=== PATIENT | female | born 1965 | race Asian ===

== ENCOUNTER 2020-04-19 08:29 | Outpatient (REF) | payer OTHER, SELFPAY ==
--- NOTE | 2020-04-19 08:35 | MM_ITS ---
EXAMINATION: MM SCREENING DIGITAL BREAST TOMOSYNTHESIS, BILATERAL CLINICAL INFORMATION: Screening. Asymptomatic. The lifetime risk of breast cancer based on the Tyrer-Cuzick Model is 6.7%. COMPARISON: Mammography: December 20, 2018 and studies dating back to September 28, 2017 TECHNIQUE: Digital breast tomosynthesis is performed in both the craniocaudal and mediolateral oblique views along with computer-aided detection (CAD). Synthesized 2D images are generated from the tomosynthesis. FINDINGS: The breasts are almost entirely fatty (ACR BI-RADS breast composition Category a). There are no significant masses, abnormal calcifications, or other abnormalities. MM/MM tomosynthesis screening BI IMPRESSION: There are no significant changes from prior study. ASSESSMENT: BI-RADS 1: Negative RECOMMENDATION: Routine annual mammography screening. This patient's information was entered into a reminder system with a target due date for their next mammogram.
== END 2020-04-19 08:30 | disposition home or self-care (01) ==
LOC: HO.MAMMO 08:29
PROVIDERS: PCP Internal Medicine; Visit Provider Internal Medicine
DX: Z12.31 Encounter for screening mammogram for malignant neoplasm of breast (principal)
CPT/HCPCS: 77063; 77067

== ENCOUNTER 2020-06-12 13:37 | Outpatient (REF) | payer OTHER, SELFPAY ==
[2020-06-12 16:36] LABS: Basophils Percent Auto 0.5 % (0-2); Eosinophils Absolute Auto 0.2 X10*3/uL (0.0-0.4); Eosinophils Percent Auto 1.9 % (0-4); Hematocrit 39.9 % (37-47); Hemoglobin 12.1 g/dl (12.0-16.0); Imm Gran Abs Auto 0.02 X10*3/uL (0.00-0.03); Imm Gran Pct Auto 0.3 % (0.0-0.4); Lymphocytes Absolute Auto 3.1 X10*3/uL (1.2-4.9); Lymphocytes Percent Auto 38.9 % (20-40); Mean Corpuscular HGB Conc 30.3 g/dl (31.0-35.0); Mean Corpuscular Hemoglobin 25.6 pg (27.0-33.0); Mean Corpuscular Volume 84.4 fL (80-98); Monocytes Absolute Auto 0.3 X10*3/uL (0.1-1.2); Monocytes Percent Auto 3.7 % (2-11); Neutrophils Absolute Auto 4.3 X10*3/uL (2.0-8.3); Neutrophils Percent Auto 54.7 % (45-73); Platelet Count 356 X10*3/uL (160-400); Red Blood Count 4.73 X10*6/uL (4.20-5.50); Red Cell Distribution Width 14.3 % (11.0-16.0); White Blood Count 7.9 X10*3/uL (4.8-10.8)
[2020-06-12 16:38] LABS: MANUAL DIFF FLAG NO
[2020-06-12 16:45] LABS: Estimated Average Glucose 180 mg/dL; Hemoglobin A1c % 7.9 %
[2020-06-12 16:51] LABS: Anion Gap 16 (12-20); Blood Urea Nitrogen 12 mg/dL (9-16); Calcium 9.8 mg/dL (8.4-10.2); Carbon Dioxide 26 mmol/L (22-29); Chloride 102 mmol/L (96-108); Cholesterol 216 mg/dL; Estimated Glomerular Filt Rate > 60; Glucose Fasting 96 mg/dL (60-99); HDL Cholesterol 65 mg/dL; LDL Cholesterol Calculated 126 mg/dl; Potassium 4.4 mmol/l (3.3-5.1); Sodium 140 mmol/L (135-145); Triglycerides 127 mg/dL
== END 2020-06-12 13:38 | disposition home or self-care (01) ==
LOC: HO.HMGCLDS 13:37
PROVIDERS: PCP Internal Medicine; Visit Provider Internal Medicine
DX: E78.9 Disorder of lipoprotein metabolism, unspecified (principal); F41.1 Generalized anxiety disorder; I10 Essential (primary) hypertension; N32.81 Overactive bladder
CPT/HCPCS: 36415; 80048; 80061; 83036; 85025

== ENCOUNTER 2020-06-26 08:24 | Day surgery (SDC) | payer OTHER, SELFPAY ==
--- NOTE | 2020-06-25 10:11 | HO.ANESPROP2 ---
Documented by User: Minda Jonse 06/25/20 10:12 HPI - Anesthesia Eval Consult details Narrative: 54yo F for Colonoscopy PMFSH Past Medical History Medical History Anxiety, generalized History of vertigo Hypertension, essential Lipid disorder Overactive bladder Family History Family History Father No problems noted. Mother No problems noted. Surgical History Surgical History Hx of appendectomy Social History Social History Smoking Status: Never smoker Use of substances other than those prescribed or required for medical reasons: No Advance Directives: No Advance Directives Information Provided: Yes Meds Allergies Allergy/AdvReac Type Severity Reaction Status Date / Time fish Allergy Intermediate hives Verified 06/26/20 09:50 yogurt Allergy Intermediate hives Verified 06/26/20 09:50 Home Medications Medication Instructions Recorded Confirmed Type aspirin 81 mg tablet,delayed 81 mg PO DAILY 05/22/20 06/21/20 History release atenolol 25 mg tablet 25 mg PO DAILY 05/22/20 06/21/20 History multivitamin 1 tab PO DAILY 05/22/20 06/21/20 History prochlorperazine maleate 5 mg 5 mg PO DAILY PRN tab 05/22/20 06/21/20 History tablet Exam Exam Date and Time: June 25, 2020 1011 Assessment and Plan Assessment Anesthesia Assessment: Chart Reviewed Documented by User: Shania Vines 06/26/20 10:15 PMFSH Past Medical History Medical History Anxiety, generalized History of vertigo Hypertension, essential Lipid disorder Overactive bladder Family History Family History Father No problems noted. Mother No problems noted. Surgical History Surgical History Hx of appendectomy Social History Social History Smoking Status: Never smoker Use of substances other than those prescribed or required for medical reasons: No Advance Directives: No Advance Directives Information Provided: Yes Meds Allergies Allergy/AdvReac Type Severity Reaction Status Date / Time fish Allergy Intermediate hives Verified 06/26/20 09:50 yogurt Allergy Intermediate hives Verified 06/26/20 09:50 Home Medications Medication Instructions Recorded Confirmed Type aspirin 81 mg tablet,delayed 81 mg PO DAILY 05/22/20 06/21/20 History release atenolol 25 mg tablet 25 mg PO DAILY 05/22/20 06/21/20 History multivitamin 1 tab PO DAILY 05/22/20 06/21/20 History prochlorperazine maleate 5 mg 5 mg PO DAILY PRN tab 05/22/20 06/21/20 History tablet Exam Airway Mallampati Class: I TM Dist: >3cm Neck ROM: Full Loose/Missing/Broken Teeth: No Heart: RRR Lungs: CTA Assessment and Plan Assessment Anesthesia Assessment: Anesthesia Plan Discussed and Chart Reviewed Final Anesthetic Review NPO: Yes ASA Class: II Final Preanesthetic Review: Meds/Allgs Chart Reviewed, Consent Obtained/Reviewed and Anes Risks/Benef Reviewed Patient Risk: Low Procedure Risk: Low Anesthetic Plan Anesthetic Plan: MAC: Disposition: Standard PACU
[2020-06-26 09:44] VITALS: BMI 31.4
[2020-06-26 10:03] VITALS: BP 133/73; PULSE 65; RESP 16; TEMP 36.3; O2SAT 100
--- NOTE | 2020-06-26 10:17 | MHC.SHP ---
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) Present Medications: see Short Stay Collaborative assessment Medical History: Significant History (Hypertension, ) History of Previous Operations: No relevant previous surgery (Appendectomy) Allergies: Allergies Allergy/AdvReac Type Severity Reaction Status Date / Time fish Allergy Intermediate hives Verified 06/26/20 09:50 yogurt Allergy Intermediate hives Verified 06/26/20 09:50 Review of Systems Sugical H&P ROS: Negative: Constitution, Psychiatric and Gastrointestinal Exam Surgical H&P Exam: Normal: HEENT, Normal: Heart, Normal: Lungs, Normal: Extremities and Normal: Abdomen Plan Diagnosis/Plan: Unchanged I have reviewed the history and physical and performed a pertinent physical examination on my patient. No changes have occurred unless specified.yes
[2020-06-26] MEDS: Lactated Ringers 1,000 ML 100 ML IVCONT (10:24)
[2020-06-26 11:03] VITALS: BP 115/51; PULSE 63; RESP 18; TEMP 36.2; O2SAT 100
--- NOTE | 2020-06-26 11:03 | PM.PROC ---
Brief Operative Note Date of procedure: 06/26/20 Pre-op diagnosis: COLON CANCER SCREENING Post-op diagnosis: other (COLONIC POLYP, 1+ INTERNAL HEM. MARGINAL PREP LEFT SIDE(FIBER)) Procedure: COLONOSCOPY WITH EXCISIONAL POLYPECTOMY Anesthesia: MAC (MD ZAIDA) Surgeon: Rula Cano Estimated blood loss (mL): 10 Pathology: other (70 CM) Condition: stable Disposition: PACU
[2020-06-26 11:18] VITALS: BP 137/80; PULSE 60; RESP 16; TEMP 36.2; O2SAT 98
--- NOTE | 2020-06-26 11:51 | HO.POSTANES ---
Post Anesthesia Evaluation Post Anesthesia Evaluation Vital Signs: Vital Signs Temp Pulse Resp BP Pulse Ox 06/26/20 11:18 97.1 F 60 16 137/80 98 06/26/20 11:03 97.1 F 63 18 115/51 L 100 06/26/20 10:03 97.4 F 65 16 133/73 100 Anesthesia: Monitored Mental Status: Awake Pain Control: Satisfactory Nausea/Vomiting: None Hydration: Adequate Anesthesia-Related Issues: No Anes. Related Issues
--- NOTE | 2020-06-26 20:52 | OP_ITS ---
SURGEON: Rula Cano MD PREOPERATIVE DIAGNOSIS: Preop screening. POSTOPERATIVE DIAGNOSIS:See below PROCEDURE PERFORMED: Colonoscopy with excisional polypectomy x1. ESTIMATED BLOOD LOSS: Less than 10 mL. COMPLICATIONS:NONE ANESTHESIA: Monitored. ANESTHESIOLOGIST: Shania Vines MD ASSISTANTS: No printing bindery assistant. SPECIMENS: Removed, polyp 3 to 4 mm located at 70 cm. POSTOPERATIVE DIAGNOSES: Colonic polyp, 1+ internal hemorrhoids. ASPHALT HEATER OPERATOR: Dr. Cano. CONDITION: Postop, stable. GRAFT OR IMPLANTS: No grafts or implants. FINDINGS: Digital rectal exam revealed no specific lesion. Video colonoscope was introduced without difficulty and navigated into the rectosigmoid and sigmoid. There was mild redundancy in these areas. Scope was slowly advanced through sigmoid, descending, and transverse colon. There were areas of clustered fibrous material, which was too expensive to be able to suction through the scope. We did flush and suction certain areas. Scope advanced through transverse, ascending colon down into the cecum. Appendiceal orifice was seen. Ileocecal valve was well seen. No mucosal abnormalities were appreciated. Slow withdrawal of scope. Good rotational views. Most of the fibrous material had moved distally to below 60 cm, at 70 cm identified a 3-4 mm sessile polyp, it was removed excisionally with cold biopsy forceps. Scope continued to be withdrawn. On withdrawal of the area, the distal descending sigmoid was obscured by the residual fibrous material. Rectum had no specific lesions. Anorectal verge was well seen and normal. 1+ internal hemorrhoids were noted. PLAN: Current recommendations for repeat asymptomatic screening in this patient with polyp, and marginal prep on the left side would be 3 years, would consider doing Fit testing at years 1 and 2. Rula Cano MD MEN/MODL / [id number] MTDD
== END 2020-06-26 12:10 | disposition home or self-care (01) ==
PROVIDERS: PCP Internal Medicine; Visit Provider Internal Medicine Gastroenterology
PROC: 0DJD8ZZ Inspection of Lower Intestinal Tract, Via Natural or Artificial Opening Endoscopic (ICD-10-PCS; CPT 45378; principal; 2020-06-26 09:30)
DX: Z12.11 Encounter for screening for malignant neoplasm of colon (principal); D12.4 Benign neoplasm of descending colon; K64.8 Other hemorrhoids; I10 Essential (primary) hypertension; Z79.82 Long term (current) use of aspirin; Z79.899 Other long term (current) drug therapy
CPT/HCPCS: 45380; 88305

== ENCOUNTER → 2020-07-10 15:03 | Outpatient (BNVA) | payer OTHER, SELFPAY | PROVIDERS: PCP Internal Medicine; Visit Provider Nurse Practitioner ==

== ENCOUNTER 2020-10-22 10:28 | Outpatient (REF) | payer OTHER, SELFPAY ==
--- NOTE | ~2020-10-22 | XR_ITS ---
EXAMINATION: XR CHEST CLINICAL INFORMATION: Allergic rhinitis COMPARISON: None TECHNIQUE: 2 views of the chest were obtained. FINDINGS: The cardiac and mediastinal contours are normal. The lungs are clear. There is no pleural effusion or pneumothorax. There are degenerative changes of the spine. XR/XR chest 2V IMPRESSION: No evidence for acute disease in the chest.
== END 2020-10-22 10:29 | disposition home or self-care (01) ==
LOC: HO.XRAY 10:28
PROVIDERS: PCP Internal Medicine; Visit Provider Internal Medicine
DX: J30.9 Allergic rhinitis, unspecified (principal); R05 Cough
CPT/HCPCS: 71046; 99202

== ENCOUNTER 2020-11-28 14:01 | Outpatient (REF) | payer OTHER, SELFPAY ==
[2020-11-30 20:22] LABS: HPV mRNA E6/E7 rflx Not Detected (Not Detected)
== END 2020-11-28 14:02 | disposition home or self-care (01) ==
LOC: HO.LAB 14:01
PROVIDERS: PCP Internal Medicine; Visit Provider Advanced Practice Midwife
DX: Z01.411 Encounter for gynecological examination (general) (routine) with abnormal findings (principal); Z11.51 Encounter for screening for human papillomavirus (HPV); N88.9 Noninflammatory disorder of cervix uteri, unspecified
CPT/HCPCS: 87624; 88142

== ENCOUNTER 2020-12-19 11:04 | Outpatient (REF) | payer OTHER, SELFPAY ==
[2020-12-19 14:17] LABS: Alanine Aminotransferase 17 U/L (0-31); Albumin Level 4.2 g/dL (3.5-5.0); Alkaline Phosphatase 78 U/L (39-117); Anion Gap 16 (12-20); Aspartate Amino Transferase 19 U/L (5-31); Bilirubin Total 0.4 mg/dL (0.0-1.0); Blood Urea Nitrogen 17 mg/dL (9-16); Calcium 9.8 mg/dL (8.4-10.2); Carbon Dioxide 25 mmol/L (22-29); Chloride 106 mmol/L (96-108); Estimated Glomerular Filt Rate > 60; Glucose Random 109 mg/dL (60-115); Potassium 4.4 mmol/L (3.3-5.1); Sodium 143 mmol/L (135-145); Total Protein 7.7 g/dL (6.5-8.0)
[2020-12-19 14:24] LABS: Microalbum/Creatinine Ratio Ur 9.6 ug/mg cr
[2020-12-19 14:32] LABS: Estimated Average Glucose 148 mg/dL; Hemoglobin A1C 152.0194 umol/L; Hemoglobin A1c % 6.8 %
== END 2020-12-19 11:05 | disposition home or self-care (01) ==
LOC: HO.HMGCLDS 11:04
PROVIDERS: PCP Internal Medicine; Visit Provider Internal Medicine
DX: E11.9 Type 2 diabetes mellitus without complications (principal); E78.9 Disorder of lipoprotein metabolism, unspecified; F41.1 Generalized anxiety disorder; I10 Essential (primary) hypertension; N32.81 Overactive bladder; R05 Cough
CPT/HCPCS: 36415; 80053; 82043; 83036

== ENCOUNTER 2020-12-28 11:25 | Outpatient (REF) | payer OTHER, SELFPAY ==
--- NOTE | ~2020-12-28 | XR_ITS ---
EXAMINATION: XR CHEST CLINICAL INFORMATION: R05 - Cough COMPARISON: Chest radiographs 10/22/2020 TECHNIQUE: 2 views of the chest were obtained. FINDINGS: The lungs are clear. There is no airspace consolidation or groundglass opacity or effusion. The costophrenic sulci are well-defined. The heart is normal in size and the vascularity is normal. The hilar and mediastinal contours are unremarkable. There are multilevel mild degenerative changes thoracic spine. XR/XR chest 2V IMPRESSION: Unremarkable examination.
== END 2020-12-28 11:26 | disposition home or self-care (01) ==
LOC: HO.HMGCX 11:25
PROVIDERS: PCP Internal Medicine; Visit Provider Internal Medicine
DX: R05 Cough (principal)
CPT/HCPCS: 71046

== ENCOUNTER → 2021-03-06 09:28 | Outpatient (BNVA) | payer OTHER, SELFPAY | PROVIDERS: PCP Internal Medicine; Visit Provider Internal Medicine | DX: J30.9 Allergic rhinitis, unspecified (principal); R05 Cough | CPT/HCPCS: 99212 ==

== ENCOUNTER 2021-03-13 12:38 | Outpatient (REF) | payer OTHER, SELFPAY ==
--- NOTE | 2021-03-13 14:00 | PFT_ITS ---
SPIROMETRY: The FEV1 to FVC 80% with an FEV1 of 1.53 L, which is 57% predicted and an FVC of 1.92 L, which is 56% predicted. No significant response to bronchodilators noted. To note, the patient does have significant small airways disease and the maximum voluntary ventilation 61% predicted. LUNG VOLUMES: Total lung capacity 71% predicted with an expiratory reserve volume of 40% predicted and diffusion capacity of 65% predicted. COMPARISONS: None. INTERPRETATION: No obstructive ventilatory defect and no significant response to bronchodilators noted. However, the patient does have evidence of small airway disease based on the [id number]. The maximum voluntary ventilation is moderately decreased suggesting deconditioning or neuromuscular conditions. In addition to that, the patient does have a mild restrictive ventilatory defect of unclear etiology. Need to consider neuromuscular conditions or parenchymal conditions. The patient also has mild diffusion impairment. If asthma is in the differential, methacholine challenge may be helpful in assessing for hyper-reactive airways, otherwise clinical correlation warranted. MD HUNTER Saavedra/MODL / [id number]
== END 2021-03-13 12:39 | disposition home or self-care (01) ==
LOC: HO.RESP 12:38
PROVIDERS: PCP Internal Medicine; Visit Provider Internal Medicine
DX: R05.9 Cough, unspecified (principal)
CPT/HCPCS: 94060; 94727; 94729

== ENCOUNTER → 2021-03-21 14:24 | Outpatient (BNVA) | payer OTHER, SELFPAY | PROVIDERS: PCP Internal Medicine; Visit Provider Internal Medicine | DX: J30.9 Allergic rhinitis, unspecified (principal); R05.9 Cough, unspecified; J06.9 Acute upper respiratory infection, unspecified | CPT/HCPCS: 99212 ==

== ENCOUNTER 2021-07-01 08:10 | Outpatient (REF) | payer OTHER, SELFPAY ==
[2021-07-01 11:51] LABS: Estimated Average Glucose 151 mg/dL; Hemoglobin A1c % 6.9 %
[2021-07-01 12:07] LABS: Alanine Aminotransferase 30 U/L (0-31); Albumin Level 4.1 g/dL (3.5-5.0); Alkaline Phosphatase 101 U/L (39-117); Anion Gap 14 (12-20); Aspartate Amino Transferase 20 U/L (5-31); Bilirubin Total 0.4 mg/dL (0.0-1.0); Blood Urea Nitrogen 19 mg/dL (9-16); Calcium 9.9 mg/dL (8.4-10.2); Carbon Dioxide 27 mmol/L (22-29); Chloride 103 mmol/L (96-108); Cholesterol 169 mg/dL; Estimated Glomerular Filt Rate > 60; Glucose Fasting 112 mg/dL (60-99); HDL Cholesterol 47 mg/dL; LDL Cholesterol Calculated 99 mg/dl; Potassium 5.4 mmol/L (3.3-5.1); Sodium 139 mmol/L (135-145); Total Protein 7.4 g/dL (6.5-8.0); Triglycerides 118 mg/dL
[2021-07-01 12:28] LABS: Syphilis Screen Nonreactive (Nonreactive)
== END 2021-07-01 08:11 | disposition home or self-care (01) ==
LOC: HO.HMGCLDS 08:10
PROVIDERS: Visit Provider Internal Medicine
DX: I10 Essential (primary) hypertension (principal); E11.9 Type 2 diabetes mellitus without complications; E78.9 Disorder of lipoprotein metabolism, unspecified; N32.81 Overactive bladder; F41.1 Generalized anxiety disorder; Z91.09 Other allergy status, other than to drugs and biological substances; Z11.3 Encounter for screening for infections with a predominantly sexual mode of transmission
CPT/HCPCS: 36415; 80053; 80061; 83036; 86780

== ENCOUNTER 2021-07-04 08:33 | Outpatient (REF) | payer OTHER, SELFPAY ==
[2021-07-04 11:45] LABS: Estimated Average Glucose 154 mg/dL
[2021-07-04 11:56] LABS: Alanine Aminotransferase 24 U/L (0-31); Albumin Level 4.1 g/dL (3.5-5.0); Alkaline Phosphatase 106 U/L (39-117); Anion Gap 13 (12-20); Aspartate Amino Transferase 18 U/L (5-31); Bilirubin Total 0.4 mg/dL (0.0-1.0); Blood Urea Nitrogen 17 mg/dL (9-16); Calcium 9.8 mg/dL (8.4-10.2); Carbon Dioxide 28 mmol/L (22-29); Chloride 103 mmol/L (96-108); Estimated Glomerular Filt Rate > 60; Glucose Random 121 mg/dL (60-115); Potassium 5.5 mmol/L (3.3-5.1); Sodium 138 mmol/L (135-145); Total Protein 7.5 g/dL (6.5-8.0)
[2021-07-04 12:10] LABS: Creatinine Urine 66.42 mg/dL; Microalbumin Urine < 5.0 mg/L
== END 2021-07-04 08:34 | disposition home or self-care (01) ==
LOC: HO.HMGCLDS 08:33
PROVIDERS: PCP Internal Medicine; Visit Provider Internal Medicine
DX: E11.9 Type 2 diabetes mellitus without complications (principal); I10 Essential (primary) hypertension; E78.9 Disorder of lipoprotein metabolism, unspecified; N32.81 Overactive bladder; F41.1 Generalized anxiety disorder; R05.9 Cough, unspecified
CPT/HCPCS: 36415; 80053; 82043; 83036

== ENCOUNTER 2021-07-19 09:18 | Outpatient (REF) | payer OTHER, SELFPAY ==
[2021-07-19 11:41] LABS: Anion Gap 12 (12-20); Carbon Dioxide 29 mmol/L (22-29); Chloride 103 mmol/L (96-108); Sodium 139 mmol/L (135-145)
== END 2021-07-19 09:19 | disposition home or self-care (01) ==
LOC: HO.HMGCLDS 09:18
PROVIDERS: Visit Provider Internal Medicine
DX: E87.5 Hyperkalemia (principal)
CPT/HCPCS: 36415; 80051

== ENCOUNTER 2022-05-17 09:21 | Outpatient (REF) | payer OTHER, SELFPAY ==
[2022-05-17 11:45] LABS: Alanine Aminotransferase 27 U/L (0-31); Albumin Level 4.2 g/dL (3.5-5.0); Alkaline Phosphatase 93 U/L (39-117); Anion Gap 15 (12-20); Aspartate Amino Transferase 23 U/L (5-31); Bilirubin Total 0.6 mg/dL (0.0-1.0); Blood Urea Nitrogen 15 mg/dL (9-16); Calcium 9.9 mg/dL (8.4-10.2); Carbon Dioxide 27 mmol/L (22-29); Chloride 104 mmol/L (96-108); Cholesterol 169 mg/dL; Estimated Glomerular Filt Rate > 60; Glucose Fasting 107 mg/dL (60-99); HDL Cholesterol 54 mg/dL; LDL Cholesterol Calculated 94 mg/dl; Potassium 4.6 mmol/L (3.3-5.1); Sodium 141 mmol/L (135-145); Total Protein 6.9 g/dL (6.5-8.0); Triglycerides 109 mg/dL
[2022-05-17 12:01] LABS: Estimated Average Glucose 180 mg/dL; Hemoglobin A1c % 7.9 %
== END 2022-05-17 09:22 | disposition home or self-care (01) ==
LOC: HO.HMGCLDS 09:21
PROVIDERS: PCP Internal Medicine; Visit Provider Internal Medicine
DX: Z00.01 Encounter for general adult medical examination with abnormal findings (principal); I10 Essential (primary) hypertension; N32.81 Overactive bladder; E78.9 Disorder of lipoprotein metabolism, unspecified; E11.9 Type 2 diabetes mellitus without complications; R05.8 Other specified cough
CPT/HCPCS: 36415; 80053; 80061; 83036

== ENCOUNTER 2022-09-20 11:16 | Outpatient (REF) | payer OTHER, SELFPAY ==
[2022-09-20 13:26] LABS: Hemoglobin 11.1 g/dl (12.0-16.0)
[2022-09-20 13:39] LABS: Estimated Average Glucose 157 mg/dL; Hemoglobin A1c % 7.1 %
[2022-09-20 14:26] LABS: Alanine Aminotransferase 23 U/L (0-31); Albumin Level 4.1 g/dL (3.5-5.0); Alkaline Phosphatase 91 U/L (39-117); Anion Gap 10 (12-20); Aspartate Amino Transferase 20 U/L (5-31); Bilirubin Total 0.5 mg/dL (0.0-1.0); Blood Urea Nitrogen 14 mg/dL (9-16); Calcium 9.6 mg/dL (8.4-10.2); Carbon Dioxide 30 mmol/L (22-29); Chloride 107 mmol/L (96-108); Estimated Glomerular Filt Rate > 60; Glucose Random 109 mg/dL (60-115); Potassium 4.6 mmol/L (3.3-5.1); Sodium 142 mmol/L (135-145); Total Protein 6.7 g/dL (6.5-8.0)
[2022-09-21 16:28] LABS: LDL Cholesterol Direct 91 mg/dL (<100)
== END 2022-09-20 11:17 | disposition home or self-care (01) ==
LOC: HO.HMGCLDS 11:16
PROVIDERS: PCP Internal Medicine; Visit Provider Internal Medicine
DX: E11.9 Type 2 diabetes mellitus without complications (principal); E78.9 Disorder of lipoprotein metabolism, unspecified; I10 Essential (primary) hypertension; N32.81 Overactive bladder; R10.13 Epigastric pain; Z91.09 Other allergy status, other than to drugs and biological substances
CPT/HCPCS: 36415; 80053; 83036; 83721; 85014; 85018

== ENCOUNTER 2022-09-27 11:03 | Outpatient (REF) | payer OTHER, SELFPAY ==
[2022-09-27 14:09] LABS: Creatinine Urine 22.79 mg/dL; Microalbumin Urine < 5.0 mg/L
== END 2022-09-27 11:04 | disposition home or self-care (01) ==
LOC: HO.HMGCLNP 11:03
PROVIDERS: PCP Internal Medicine; Visit Provider Internal Medicine
DX: I12.9 Hypertensive chronic kidney disease with stage 1 through stage 4 chronic kidney disease, or unspecified chronic kidney disease (principal); E11.22 Type 2 diabetes mellitus with diabetic chronic kidney disease; N32.81 Overactive bladder; E78.9 Disorder of lipoprotein metabolism, unspecified; R10.13 Epigastric pain; Z91.09 Other allergy status, other than to drugs and biological substances
CPT/HCPCS: 82043

== ENCOUNTER 2023-01-30 10:45 | Outpatient (AMB) | payer OTHER, SELFPAY ==
[2023-01-30 10:50] VITALS: BP 108/72; PULSE 66; O2SAT 96; BMI 33.7
--- NOTE | 2023-01-30 10:50 | MHC.PC.OV ---
Vital Signs 01/30/23 10:50 Height 5 ft Weight 172 lb 8 oz BMI 33.7 BP 108/72 Blood Pressure Location Rt brachial Position Sitting Pulse 66 Pulse Source Pulse Oximeter Pulse Oximetry (%) 96 Oxygen Delivery Method Room Air Intake Visit Reasons: PE Allergies fish Allergy (Intermediate, Verified 01/30/23 10:50) hives yogurt Allergy (Intermediate, Verified 01/30/23 10:50) hives amlodipine Adverse Reaction (Mild, Verified 01/30/23 10:50) ankle swelling hickery tree Allergy (Mild, Uncoded 01/30/23 10:56) Cough maple tree Allergy (Mild, Uncoded 01/30/23 10:56) Cough ragweed Allergy (Mild, Uncoded 01/30/23 10:56) Cough Medication List - Last Reconciled 01/30/23 by Barb Julian MD alcohol swabs (Alcohol Prep Pads) pad topical atenolol 50 mg PO DAILY 90 days atorvastatin 10 mg PO DAILY blood sugar diagnostic (FreeStyle Lite Strips) once a day fasting blood-glucose meter (FreeStyle Lite Meter kit) As directed cholecalciferol (vitamin D3) 50 mcg PO DAILY fluticasone propionate 50 mcg/actuation 2 sprays intranasal DAILY glipizide ER 2.5 mg PO DAILY 90 days lancets (FreeStyle Lancets) qd fasting loratadine 10 mg PO DAILY 90 days meclizine 25 mg PO DAILY PRN 90 days montelukast 10 mg PO DAILY Symbicort 80-4.5 mcg/actuation (budesonide-formoterol) 2 puffs inhalation Q12H 30 days NS tolterodine 1 mg PO BID Tobacco use date assessed: 01/30/23 Dental Screening Dental Screen Date: 01/30/23 Did you have a dental visit in the last 12 months?: Yes Did you have a dental problem in the last 6 months where you did not have access to dental care?: No Was dental information given to patient?: No HPI PE HPI Details Patient is a 57-year-old female came in today for physical exam Due for mammogram Due for Pap smear patient will call and book appointment she is seeing [facility] O[facility] Colonoscopy was in 2020 next 1 will be in 2023 [facility] Patient have a skin growth above her right eyelid she would like to see a dermatology BMI is elevated at 33.7, patient need to lose weight , I have discussed diet with the patient several times she is aware about want to eat what not to eat She does not want to take the inhaler that she was taking for chronic cough and asthma patient has started drinking turmeric mixed in milk that has resolved her problem She has also seen java lead developer and had allergy testing done her allergies are not that severe so no further treatment was recommended. Labs are needed today. Blood pressure and sugar controlled Continue cetirizine and montelukast She is also on did draw all for urinary urgency Patient is to return in 3 month for follow-up [facility] Medical History Allergic rhinitis Anxiety, generalized History of vertigo Hypertension, essential (Unknown) Lipid disorder Overactive bladder Surgical History Hx of appendectomy Hx of colonoscopy Family History Father No problems noted. Mother No problems noted. Social History Housing: Apartment Alcohol intake: current Alcohol intake frequency: does not drink Patient Tobacco Use Status: Never used Tobacco e-Cigarette/Vaping Use: Never Used Second Hand Smoke Exposure: No service: No Current occupational status: unemployed Cognitive needs: No Hearing needs: No Vision needs: No Questionnaire PHQ-9 Over the last 2 weeks, how often have you been bothered by any of the following problems? 1. Little interest or pleasure in doing things: not at all 2. Feeling down, depressed, or hopeless: not at all 3. Trouble falling or staying asleep, or sleeping too much: not at all 4. Feeling tired or having little energy: not at all 5. Poor appetite or overeating: not at all 6. Feeling bad about yourself - or that you are a failure or have let yourself or your family down: not at all 7. Trouble concentrating on things, such as reading the newspaper or watching television: not at all 8. Moving or speaking so slowly that other people could have noticed. Or the opposite - being so fidgety or restless that you have been moving around a lot more than usual: not at all 9. Thoughts that you would be better off or of hurting yourself in some way: not at all Total score: 0 Depression Screening Interpretation: Negative 38871 - PHQ-9 Billing: Yes Source: Developed by Drs. Cleve Yoder, Kati Young, Sander Beatty and colleagues, with an educational mellisa from [employer]. Thrive Questionnaire Date Thrive assessed: 01/30/23 I am a: Patient What is your living situation today?: I have a steady place to live Within the past 12 months, did the food you bought not last and you didn't have the money to get more?: Never true Within the past 12 months, did you worry whether your food would run out before you got money to buy more?: Never true Do you have trouble paying for medicines?: No Do you have trouble getting transportation to medical appointments?: No Do you have trouble paying your heating and electricity bill?: No Do you have trouble taking care of your child, family member or friend?: No Do you have trouble with day-to-day activities such as bathing, preparing meals, shopping, managing finances, etc.?: No Are you currently unemployed and looking for a job?: No Are you interested in more education?: No AUDIT C Alcohol Use Questionnaire (AUDIT-C) 1. How often do you have a drink containing alcohol?: Never 3. How often do you have six or more drinks on one occasion?: Never Total Score: 0 Score Reviewed/Action Taken: Yes PAT-7 AMB Questionnaire PAT-7 Date PAT - 7 assessed: 01/30/23 Feeling nervous, anxious, or on edge: 0 = Not at all Not being able to stop or control worryin = Not at all Worrying too much about different things: 0 = Not at all Trouble relaxin = Not at all Being so restless that it is hard to sit still: 0 = Not at all Becoming easily annoyed or irritable: 0 = Not at all Feeling afraid as if something awful might happen: 0 = Not at all Total PAT-7 score (0-4 normal; 5-9 mild; 10-14 moderate; 15-21 severe): 0 Source: Developed by Kati Krishna, Sander Beatty and colleagues, with an educational mellisa from [employer]. PAT-7 Assessment Billing PAT-7 Assessment Tool: PAT-7 Assessment 66692 Review of Systems Const Denies chills, Denies fever(s) and Denies headache(s) Eyes Denies blurry vision ENT Denies headache(s), Denies nasal discharge, Denies nasal obstruction, Denies odynophagia and Denies sinus pain Card Denies chest pain at rest and Denies chest pain with activity Resp Denies cough and Denies hemoptysis GI Denies diarrhea, Denies odynophagia, Denies vomiting and Denies hematemesis Reports as per HPI Musc Denies abnormal gait Skin/Breast Reports as per HPI Neuro Denies Neuro-related abnormal movements, Denies Abnormal speech present, Denies abnormal gait, Denies headache(s) and Denies Sensory deficit (Neuro) Psych Denies mood swings and Denies paranoia Endo Reports as per HPI Simon/Lymph Reports as per HPI Aller/Immun Reports as per HPI Physical exam (Primary Care) Vital Signs: Last Vital Signs Pulse 66 01/30/23 10:50 BP 108/72 01/30/23 10:50 Pulse Ox 96 01/30/23 10:50 Oxygen Delivery Method Room Air 01/30/23 10:50 BMI result Body Mass Index 33.7 BMI Assessment/Plan discussion: High Tobacco/Smoking Status: Tobacco use Status Tobacco use date assessed 01/30/23 01/30/23 10:56 Patient Tobacco Use Status Never used Tobacco 01/30/23 10:56 e-Cigarette/Vaping Use Never Used 01/30/23 10:56 PHQ-9: PHQ-9 Score PHQ-9: Total score 0 01/30/23 11:16 Depression Screening Interpretation: Negative Thrive Assessment: Date of Thrive Assessment Date Thrive assessed 01/30/23 01/30/23 11:15 Const General: cooperative, comfortable and no acute distress Orientation/consciousness: patient oriented x3 HENMT Head: Yes normocephalic and Yes atraumatic Eyes General: appearance normal, both eyes and all related structures Pupils: Equal, round and reactive pupils present EOM: EOMs intact bilaterally Eyes/upper lids images: 1. White raised patch Neck Neck: Yes supple and No lymphadenopathy Thyroid: Thyroid normal Lymphatic: no lymphadenopathy noted Resp Effort & Inspection: normal respiratory effort and able to speak in complete sentences Auscultation: clear to auscultation bilaterally Cardio Heart sounds: S1 normal heart sound present and S2 normal heart sound present GI Palpation (GI): Soft to palpation and nontender Auscultation: normal bowel sounds General: Yes no CVA tenderness Back/Spine/Pelvis Back: no CVA tenderness Skin General skin exam: elasticity normal and turgor normal Neuro General: patient oriented x3 and gait normal Cranial nerves: Yes Equal, round and reactive pupils present Speech: No Abnormal speech present Sensory Exam: No Sensory deficit (Neuro) Coordination: tandem gait normal and Romberg test negative Extrem General: Yes normal exam except as noted and No edema Assessment and Plan Assessment & Plan (1) Encounter for general adult medical examination with abnormal findings: Code(s): Z00.01 - Encounter for general adult medical examination with abnormal findings (2) Diabetes type 2, controlled: Code(s): E11.9 - Type 2 diabetes mellitus without complications (3) Lipid disorder: Code(s): E78.9 - Disorder of lipoprotein metabolism, unspecified (4) Overactive bladder: Code(s): N32.81 - Overactive bladder (5) Hypertension, essential: Onset Date: Unknown Code(s): I10 - Essential (primary) hypertension (6) Obesity due to excess calories: Code(s): E66.09 - Other obesity due to excess calories (7) Dietary counseling: Comment: If your BMI is between 25 and 29.9, you are overweight. If your BMI is 30 or greater, you are obese. ___ Being obese is a problem, because it increases the risks of many different health problems. It can also make it hard for you to move, breathe, and do other things that people who are at a healthy weight can do easily. Plus, being obese can be hard emotionally. ___ What are the health risks of being obese? Being obese increases a persons risk of developing many health problems. Here are just a few examples: __ Diabetes High blood pressure, High cholesterol, Heart disease (including heart attacks) Stroke, Sleep apnea (a disorder in which you stop breathing for short periods while asleep) Asthma, Cancer __ Does being obese shorten a persons life? Yes. Studies show that people who are obese younger than people who are a healthy weight. They also show that the risk of goes up the heavier a person is. The degree of increased risk depends on how long the person has been obese, and on what other medical problems he or she has. , Reduce your carbohydrate intake and choose carbs that are complex. Remember as a general rule of thumb, avoid highly processed foods. If it's white and soft, it's probably been stripped of its nutritional value. Change white bread to whole wheat bread, white rice to brown rice, white potatoes to sweet potatoes, white pasta to whole wheat pasta. Monitor portion sizes too: protein should be no bigger than your fist. Limit your red meat intake to only once or twice a wk. Eat more white meat but make sure to avoid creamy sauces etc. Broiling, baking or grilling is best. Increase dark, green leafy vegetables and fruits. Code(s): Z71.3 - Dietary counseling and surveillance (8) Abnormal skin growth: Code(s): D49.2 - Neoplasm of unspecified behavior of bone, soft tissue, and skin Plan Patient is a 57-year-old female came in today for physical exam Due for mammogram Due for Pap smear patient will call and book appointment she is seeing [facility] O[facility] Colonoscopy was in 2020 next 1 will be in 2023 [facility] Patient have a skin growth above her right eyelid she would like to see a dermatology BMI is elevated at 33.7, patient need to lose weight , I have discussed diet with the patient several times she is aware about want to eat what not to eat She does not want to take the inhaler that she was taking for chronic cough and asthma patient has started drinking turmeric mixed in milk that has resolved her problem She has also seen java lead developer and had allergy testing done her allergies are not that severe so no further treatment was recommended. Labs are needed today. Blood pressure and sugar controlled Continue cetirizine and montelukast She is also on did draw all for urinary urgency Patient is to return in 3 month for follow-up Orders: Orders Comprehensive Met. Panel Today E11.9 - Type 2 diabetes mellitus without complications, E78.9 - Disorder of lipoprotein metabolism, unspecified, I10 - Essential (primary) hypertension, N32.81 - Overactive bladder, Z00.01 - Encounter for general adult medical examination with abnormal findings Hemoglobin A1c Today E11.9 - Type 2 diabetes mellitus without complications, E78.9 - Disorder of lipoprotein metabolism, unspecified, I10 - Essential (primary) hypertension, N32.81 - Overactive bladder, Z00.01 - Encounter for general adult medical examination with abnormal findings LDL Cholesterol Direct Today E11.9 - Type 2 diabetes mellitus without complications, E78.9 - Disorder of lipoprotein metabolism, unspecified, I10 - Essential (primary) hypertension, N32.81 - Overactive bladder, Z00.01 - Encounter for general adult medical examination with abnormal findings Microalbumin, Random (w Creat) Today E11.9 - Type 2 diabetes mellitus without complications, E78.9 - Disorder of lipoprotein metabolism, unspecified, I10 - Essential (primary) hypertension, N32.81 - Overactive bladder, Z00.01 - Encounter for general adult medical examination with abnormal findings MM tomosynthesis screening BI Today Z12.31 - Encounter for screening mammogram for malignant neoplasm of breast Referrals Dermatology Referral D49.2 - Neoplasm of unspecified behavior of bone, soft tissue, and skin Medications: Refilled lancets (FreeStyle Lancets) qd fasting 100 ea 0RF E11.9 - Type 2 diabetes mellitus without complications Discontinued Symbicort 80-4.5 mcg/actuation (budesonide-formoterol) Discontinued Reason: Doctor's Order 2 puffs inhalation Q12H 30 days 10.2 grams 3RF cough/asthma NS fluticasone propionate 50 mcg/actuation Discontinued Reason: Doctor's Order 2 sprays intranasal DAILY 48 mL 0RF Coding Level of Care Code Est Pt Prev Care 40-64y(41070) Diagnoses Encounter for general adult medical examination with abnormal findings Z00.01 Diabetes type 2, controlled E11.9 Lipid disorder E78.9 Overactive bladder N32.81 Hypertension, essential I10 Obesity due to excess calories E66.09 Dietary counseling Z71.3 Abnormal skin growth D49.2 Additional Codes PAT-7 Assessment Billing - PAT-7 Assessment Tool: PAT-7 Assessment [id number] ([id number])
== END 2023-01-30 11:19 | disposition home or self-care (01) ==
PROVIDERS: Visit Provider Internal Medicine
DX: Z00.00 Encounter for general adult medical examination without abnormal findings (principal); E11.9 Type 2 diabetes mellitus without complications; I10 Essential (primary) hypertension; E78.9 Disorder of lipoprotein metabolism, unspecified; N32.81 Overactive bladder; E66.09 Other obesity due to excess calories; Z71.3 Dietary counseling and surveillance; D49.2 Neoplasm of unspecified behavior of bone, soft tissue, and skin
CPT/HCPCS: 99396

== ENCOUNTER 2023-01-30 11:20 | Outpatient (REF) | payer OTHER, SELFPAY ==
[2023-01-30 14:19] LABS: Estimated Average Glucose 146 mg/dL; Hemoglobin A1C 149.5057 umol/L; Hemoglobin A1c % 6.7 % (<6.0)
[2023-01-30 14:20] LABS: Alanine Aminotransferase 22 U/L (0-31); Albumin Level 4.2 g/dL (3.5-5.0); Alkaline Phosphatase 89 U/L (39-117); Anion Gap 12 (12-20); Aspartate Amino Transferase 22 U/L (5-31); Bilirubin Total 0.5 mg/dL (0.0-1.0); Blood Urea Nitrogen 13 mg/dL (9-16); Calcium 10.1 mg/dL (8.4-10.2); Carbon Dioxide 27 mmol/L (22-29); Chloride 106 mmol/L (96-108); Estimated Glomerular Filt Rate > 60; Glucose Random 86 mg/dL (60-115); Potassium 4.5 mmol/L (3.3-5.1); Sodium 140 mmol/L (135-145); Total Protein 7.5 g/dL (6.5-8.0)
[2023-01-31 12:48] LABS: LDL Cholesterol Direct 86 mg/dL (<100)
== END 2023-01-30 11:21 | disposition home or self-care (01) ==
LOC: HO.HMGCLDS 11:20
PROVIDERS: PCP Internal Medicine; Visit Provider Internal Medicine
DX: Z00.01 Encounter for general adult medical examination with abnormal findings (principal); E11.9 Type 2 diabetes mellitus without complications; E78.9 Disorder of lipoprotein metabolism, unspecified; I10 Essential (primary) hypertension; N32.81 Overactive bladder
CPT/HCPCS: 36415; 80053; 83036; 83721

== ENCOUNTER 2023-01-31 11:55 | Outpatient (REF) | payer OTHER, SELFPAY ==
[2023-01-31 15:50] LABS: Creatinine Urine 63.13 mg/dL; Microalbumin Urine < 5.0 mg/L
== END 2023-01-31 11:56 | disposition home or self-care (01) ==
LOC: HO.HMGCLNP 11:55
PROVIDERS: Visit Provider Internal Medicine
DX: Z00.01 Encounter for general adult medical examination with abnormal findings (principal); E11.9 Type 2 diabetes mellitus without complications; E78.9 Disorder of lipoprotein metabolism, unspecified; N32.81 Overactive bladder; I10 Essential (primary) hypertension
CPT/HCPCS: 82043

== ENCOUNTER 2023-02-06 15:56 | Outpatient (REF) | payer OTHER, SELFPAY ==
--- NOTE | ~2023-02-06 | MM_ITS ---
EXAMINATION: MM SCREENING DIGITAL BREAST TOMOSYNTHESIS, BILATERAL CLINICAL INFORMATION: Screening. Asymptomatic. COMPARISON: Mammography: 04/19/2020, 12/20/2017, 09/28/2017; 10/07/2017 bilateral breast ultrasound. TECHNIQUE: Digital breast tomosynthesis is performed in both the craniocaudal and mediolateral oblique views along with computer-aided detection (CAD). Synthesized 2D images are generated from the tomosynthesis. In addition, a full-field right CC 3-D nipple in profile view was performed. FINDINGS: The breasts are almost entirely fatty (ACR BI-RADS breast composition Category a). There are no suspicious masses, suspicious grouped calcifications, or areas of architectural distortion. The parenchymal pattern is stable from prior exams. There are a few dermal calcifications scattered in the right breast. There are no skin changes. 2 tiny circumscribed round masses in the far posterior left breast on the CC projection are unchanged from 2018 and benign. MM/MM tomosynthesis screening BI IMPRESSION: No mammographic evidence of malignancy. Stable benign findings. ASSESSMENT: BI-RADS BI-RADS 2 - Benign Findings RECOMMENDATION: Routine annual mammography screening. 1 year F/U This examination should not preclude the clinical evaluation of a suspicious palpable abnormality. This patient's information was entered into a reminder system with a target due date for their next mammogram.
== END 2023-02-06 15:57 | disposition home or self-care (01) ==
LOC: HO.MAMMO 15:56
PROVIDERS: PCP Internal Medicine; Visit Provider Internal Medicine
DX: Z12.31 Encounter for screening mammogram for malignant neoplasm of breast (principal)
CPT/HCPCS: 77063; 77067

== ENCOUNTER → 2023-02-06 16:15 | Outpatient (BNV) | payer OTHER, SELFPAY | PROVIDERS: PCP Internal Medicine; Visit Provider Radiology Diagnostic Radiology | DX: Z12.31 Encounter for screening mammogram for malignant neoplasm of breast (principal) | CPT/HCPCS: 77063; 77067 ==

== ENCOUNTER 2023-05-08 14:20 | Outpatient (AMB) | payer OTHER, SELFPAY ==
[2023-05-08 14:24] VITALS: BP 112/72; PULSE 70; O2SAT 99; BMI 31.9
--- NOTE | 2023-05-08 14:24 | A.OFFPC_ITS ---
Vital Signs 05/08/23 14:24 Height 5 ft Weight 163 lb 8 oz BMI 31.9 BP 112/72 Blood Pressure Location Rt brachial Position Sitting Pulse 70 Pulse Source Pulse Oximeter Pulse Oximetry (%) 99 Oxygen Delivery Method Room Air Intake Visit Reasons: 3 month fu Allergies fish Allergy (Intermediate, Verified 05/08/23 14:25) hives yogurt Allergy (Intermediate, Verified 05/08/23 14:25) hives amlodipine Adverse Reaction (Mild, Verified 05/08/23 14:25) ankle swelling hickery tree Allergy (Mild, Uncoded 01/30/23 10:56) Cough maple tree Allergy (Mild, Uncoded 01/30/23 10:56) Cough ragweed Allergy (Mild, Uncoded 01/30/23 10:56) Cough Medication List - Last Reconciled 05/08/23 by Barb Julian MD alcohol swabs (Alcohol Prep Pads) pad topical atenolol 50 mg PO DAILY 90 days atorvastatin 10 mg PO DAILY blood sugar diagnostic (FreeStyle Lite Strips) once a day fasting blood-glucose meter (FreeStyle Lite Meter kit) As directed cholecalciferol (vitamin D3) 50 mcg PO DAILY glipizide ER 2.5 mg PO DAILY 90 days lancets (FreeStyle Lancets) qd fasting loratadine 10 mg PO DAILY 90 days meclizine 25 mg PO DAILY PRN 90 days montelukast 10 mg PO DAILY tolterodine 1 mg PO BID Tobacco use date assessed: 05/08/23 Dental Screening Dental Screen Date: 05/08/23 Did you have a dental visit in the last 12 months?: No Did you have a dental problem in the last 6 months where you did not have access to dental care?: No Was dental information given to patient?: Patient has dentist HPI 3 month fu HPI Details Patient is 57-year-old female this is a regular follow-up appointment Blood pressure is stable patient is on atenolol 50 mg, tolerating medication Allergies are also controlled these days patient is on loratadine and montelukast. Urine incontinence is better with Tolterodine Continue atorvastatin 10 mg Diabetes: Continue glipizide 2.5 mg hemoglobin A1c is controlled. Patient is due for labs before next visit Once in awhile patient do feel vertigo she is requesting a refill on meclizine BMI is elevated, patient need to lose weight Follow-up 4 months PFSH Medical History Allergic rhinitis History of vertigo Lipid disorder Overactive bladder Anxiety, generalized Hypertension, essential (Unknown) Surgical History Hx of colonoscopy Hx of appendectomy Family History Father No problems noted. Mother No problems noted. Social History Housing: Apartment Alcohol intake: current Alcohol intake frequency: does not drink Patient Tobacco Use Status: Never used Tobacco e-Cigarette/Vaping Use: Never Used Second Hand Smoke Exposure: No service: No Current occupational status: unemployed Cognitive needs: No Hearing needs: No Vision needs: No Questionnaire Thrive Questionnaire Date Thrive assessed: 01/30/23 I am a: Patient What is your living situation today?: I have a steady place to live Within the past 12 months, did the food you bought not last and you didn't have the money to get more?: Never true Within the past 12 months, did you worry whether your food would run out before you got money to buy more?: Never true Please select the resources that you would like help with: None AUDIT C Alcohol Use Questionnaire (AUDIT-C) 1. How often do you have a drink containing alcohol?: Never 3. How often do you have six or more drinks on one occasion?: Never Total Score: 0 Score Reviewed/Action Taken: Yes PAT-7 AMB Questionnaire PAT-7 Date PAT - 7 assessed: 01/30/23 Feeling nervous, anxious, or on edge: 0 = Not at all Not being able to stop or control worryin = Not at all Worrying too much about different things: 0 = Not at all Trouble relaxin = Not at all Being so restless that it is hard to sit still: 0 = Not at all Becoming easily annoyed or irritable: 0 = Not at all Feeling afraid as if something awful might happen: 0 = Not at all Total PAT-7 score (0-4 normal; 5-9 mild; 10-14 moderate; 15-21 severe): 0 Source: Developed by Drs. Cleve Yoder, Kati Young, Sander Beatty and colleagues, with an educational mellisa from [employer]. Review of Systems Const Denies chills and Denies fever(s) ENT Denies epistaxis and Denies nasal discharge Card Denies chest pain Resp Denies chest congestion, Denies cough and Denies hemoptysis GI Denies diarrhea and Denies nausea Skin/Breast Denies rash Neuro Reports no additional complaints Psych Reports no additional complaints Endo Reports no additional complaints Physical exam (Primary Care) Vital Signs: Last Vital Signs Pulse 70 05/08/23 14:24 BP 112/72 05/08/23 14:24 Pulse Ox 99 05/08/23 14:24 Oxygen Delivery Method Room Air 05/08/23 14:24 BMI result Body Mass Index 31.9 Tobacco/Smoking Status: Tobacco use Status Tobacco use date assessed 05/08/23 05/08/23 14:29 Patient Tobacco Use Status Never used Tobacco 05/08/23 14:29 e-Cigarette/Vaping Use Never Used 05/08/23 14:29 Thrive Assessment: Date of Thrive Assessment Date Thrive assessed 01/30/23 05/08/23 14:29 Const General: cooperative, comfortable and no acute distress Orientation/consciousness: patient oriented x3 HENMT Head: Yes normocephalic Eyes General: appearance normal, both eyes and all related structures Neck Neck: Yes supple Resp Effort & Inspection: normal respiratory effort, no cough and no stridor Cardio Rhythm: regular rhythm Heart sounds: S1 normal heart sound present and S2 normal heart sound present Skin General skin exam: turgor normal Neuro General: patient oriented x3, tone normal and moves all extremities Extrem Right lower extremity: no edema Left lower extremity: no edema Office Procedures Flu Questionnaire Does the patient have a severe egg allergy?: No Does the patient have severe life threatening allergies?: No Does the patient have a fever or illness today?: No Has the patient ever had Guillain-[place] Syndrome?: No Has the patient ever had any past reaction to a flu shot?: No Immunizations flu vacc [id number] 6mos up(PF) 60 mcg(15 mcgx4)/0.5 mL IM syringe Performing Provider: Barb Julian MD Performing Location: [facility] Adult Primary [facility] Administered by: Aimee Perez CMA on 05/08/23 14:50 Dose Route Admin Location Dispensed Lot Number Expiration Date NDC Yeast Pumper 0.5 mL IM Right Deltoid 0.5 mL [id number] 12/06/23 01426-211-07 [employer] VIS Given Date VIS Provided VIS Publication Date 05/08/23 Single Vaccine 21 Eligibility Eligibility Date Funding Source Not [facility] Eligible 05/08/23 Private Assessment and Plan Assessment & Plan (1) Diabetes mellitus type 2 in obese: Code(s): E11.69 - Type 2 diabetes mellitus with other specified complication; E66.9 - Obesity, unspecified (2) Obesity due to excess calories: Code(s): E66.09 - Other obesity due to excess calories Qualifiers: Obesity classification: adult class 1 (BMI 30 - 34.9) Serious obesity comorbidity presence: with serious comorbidity Body mass index: BMI 31.0-31.9 Qualified Code(s): E66.09 - Other obesity due to excess calories; Z68.31 - Body mass index [BMI] 31.0-31.9, adult (3) Hypertension, essential: Onset Date: Unknown Code(s): I10 - Essential (primary) hypertension (4) Lipid disorder: Code(s): E78.9 - Disorder of lipoprotein metabolism, unspecified (5) Overactive bladder: Code(s): N32.81 - Overactive bladder (6) Environmental allergies: Code(s): Z91.09 - Other allergy status, other than to drugs and biological substances (7) Dyspepsia: Code(s): R10.13 - Epigastric pain Plan Patient is 57-year-old female this is a regular follow-up appointment Blood pressure is stable patient is on atenolol 50 mg, tolerating medication Allergies are also controlled these days patient is on loratadine and montelukast. Urine incontinence is better with Tolterodine Continue atorvastatin 10 mg Diabetes: Continue glipizide 2.5 mg hemoglobin A1c is controlled. Patient is due for labs before next visit Once in awhile patient do feel vertigo she is requesting a refill on meclizine BMI is elevated, patient need to lose weight Follow-up 4 months Orders: Orders Complete Blood Count Auto Diff Today E11.69 - Type 2 diabetes mellitus with other specified complication, E66.9 - Obesity, unspecified, E78.9 - Disorder of lipoprotein metabolism, unspecified, I10 - Essential (primary) hypertension, N32.81 - Overactive bladder Comprehensive [place]. Panel Fast Today - Type 2 diabetes mellitus with other specified complication, E66.9 - Obesity, unspecified, E78.9 - Disorder of lipoprotein metabolism, unspecified, I10 - Essential (primary) hypertension, N32.81 - Overactive bladder Lipid Panel Today - Type 2 diabetes mellitus with other specified complication, E66.9 - Obesity, unspecified, E78.9 - Disorder of lipoprotein metabolism, unspecified, I10 - Essential (primary) hypertension, N32.81 - Overactive bladder Influenza [id number] Immunization Today Z23 - Encounter for immunization Hemoglobin A1c Today - Type 2 diabetes mellitus with other specified complication, E66.9 - Obesity, unspecified, E78.9 - Disorder of lipoprotein metabolism, unspecified, I10 - Essential (primary) hypertension, N32.81 - Overactive bladder Microalbumin, Random (w Creat) Today - Type 2 diabetes mellitus with other specified complication, E66.9 - Obesity, unspecified, E78.9 - Disorder of lipoprotein metabolism, unspecified, I10 - Essential (primary) hypertension, N32.81 - Overactive bladder Coding Level of Care Code Est Pt Level 4 (90749) Diagnoses Diabetes mellitus type 2 in obese ; E66.9 Class 1 obesity due to excess calories with serious comorbidity and body mass index (BMI) of 31.0 to 31.9 in adult E66.09; Z68.31 Obesity classification: adult class 1 (BMI 30 - 34.9) Serious obesity comorbidity presence: with serious comorbidity Body mass index: BMI 31.0-31.9 Hypertension, essential I10 Lipid disorder E78.9 Overactive bladder N32.81 Environmental allergies Z91.09 Dyspepsia R10.13
== END 2023-05-08 15:28 | disposition home or self-care (01) ==
PROVIDERS: PCP Internal Medicine; Visit Provider Internal Medicine
DX: E11.69 Type 2 diabetes mellitus with other specified complication (principal); E66.9 Obesity, unspecified; E66.09 Other obesity due to excess calories; Z68.31 Body mass index [BMI] 31.0-31.9, adult; I10 Essential (primary) hypertension; E78.9 Disorder of lipoprotein metabolism, unspecified; N32.81 Overactive bladder; Z91.09 Other allergy status, other than to drugs and biological substances; R10.13 Epigastric pain; Z23 Encounter for immunization
CPT/HCPCS: 90471; 90686; 99214

== ENCOUNTER 2023-08-29 11:49 | Outpatient (REF) | payer OTHER, SELFPAY ==
[2023-08-29 13:37] LABS: MANUAL DIFF FLAG NO
[2023-08-29 13:40] LABS: Basophils Percent Auto 0.4 % (0-2); Eosinophils Absolute Auto 0.1 X10*3/uL (0.0-0.4); Eosinophils Percent Auto 1.8 % (0-4); Imm Gran Abs Auto 0.03 X10*3/uL (0.00-0.03); Imm Gran Pct Auto 0.4 % (0.0-0.4); Lymphocytes Absolute Auto 2.6 X10*3/uL (1.2-4.9); Lymphocytes Percent Auto 33.2 % (20-40); Mean Corpuscular HGB Conc 30.8 g/dl (31.0-35.0); Mean Corpuscular Hemoglobin 25.6 pg (27.0-33.0); Mean Corpuscular Volume 83.2 fL (80.0-98.0); Mean Platelet Volume 10.2 fL (9.4-12.3); Monocytes Absolute Auto 0.4 X10*3/uL (0.1-1.2); Neutrophils Absolute Auto 4.6 x10*3/uL (2.0-8.3); Neutrophils Percent Auto 59.2 % (45-73); Platelet Count 343 X10*3/uL (160-400); Red Blood Count 4.69 X10*6/uL (4.20-5.50); Red Cell Distribution Width 14.8 % (11.0-16.0); White Blood Count 7.7 X10*3/uL (4.8-10.8)
[2023-08-29 13:54] LABS: Estimated Average Glucose 137 mg/dL; Hemoglobin A1c % 6.4 % (<6.0)
[2023-08-29 13:55] LABS: Alanine Aminotransferase 25 U/L (0-31); Albumin Level 4.3 g/dL (3.5-5.0); Alkaline Phosphatase 91 U/L (39-117); Anion Gap 13 (12-20); Aspartate Amino Transferase 21 U/L (5-31); Bilirubin Total 0.4 mg/dL (0.0-1.0); Blood Urea Nitrogen 14 mg/dL (9-16); Calcium 9.9 mg/dL (8.4-10.2); Carbon Dioxide 28 mmol/L (22-29); Chloride 105 mmol/L (96-108); Cholesterol 188 mg/dL (<200); Estimated Glomerular Filt Rate > 60; Glucose Fasting 107 mg/dL (60-99); HDL Cholesterol 67 mg/dL (>40); LDL Cholesterol Calculated 101 mg/dL (<100); Potassium 4.5 mmol/L (3.3-5.1); Sodium 141 mmol/L (135-145); Total Protein 7.6 g/dL (6.5-8.0); Triglycerides 103 mg/dL (<150)
[2023-08-29 14:07] LABS: Creatinine Urine 23.85 mg/dL; Microalbumin Urine < 5.0 mg/L
== END 2023-08-29 11:50 | disposition home or self-care (01) ==
LOC: HO.HMGCLDS 11:49
PROVIDERS: PCP Internal Medicine; Visit Provider Internal Medicine
DX: I10 Essential (primary) hypertension (principal); E78.9 Disorder of lipoprotein metabolism, unspecified; N32.81 Overactive bladder; E11.69 Type 2 diabetes mellitus with other specified complication; E66.9 Obesity, unspecified
CPT/HCPCS: 36415; 80053; 80061; 82043; 82570; 83036; 85025

== ENCOUNTER 2023-09-04 13:56 | Outpatient (AMB) | payer OTHER, SELFPAY ==
[2023-09-04 13:59] VITALS: BP 116/76; PULSE 60; O2SAT 98; BMI 31.7
--- NOTE | 2023-09-04 13:59 | A.OFFPC_ITS ---
Vital Signs 09/04/23 13:59 Height 5 ft Weight 162 lb 4 oz BMI 31.7 BP 116/76 Blood Pressure Location Rt brachial Position Sitting Pulse 60 Pulse Source Pulse Oximeter Pulse Oximetry (%) 98 Oxygen Delivery Method Room Air Intake Visit Reasons: 6 month fu Allergies fish Allergy (Intermediate, Verified 09/04/23 14:01) hives yogurt Allergy (Intermediate, Verified 09/04/23 14:01) hives amlodipine Adverse Reaction (Mild, Verified 09/04/23 14:01) ankle swelling hickery tree Allergy (Mild, Uncoded 01/30/23 10:56) Cough maple tree Allergy (Mild, Uncoded 01/30/23 10:56) Cough ragweed Allergy (Mild, Uncoded 01/30/23 10:56) Cough Medication List - Last Reconciled 09/04/23 by Barb Julian MD alcohol swabs (Alcohol Prep Pads) pad topical atenolol 50 mg PO DAILY 90 days atorvastatin 10 mg PO DAILY blood sugar diagnostic (FreeStyle Lite Strips) once a day fasting blood-glucose meter (FreeStyle Lite Meter kit) As directed cholecalciferol (vitamin D3) 50 mcg PO DAILY glipizide ER 2.5 mg PO DAILY 90 days lancets (FreeStyle Lancets) qd fasting loratadine 10 mg PO DAILY 90 days meclizine 25 mg PO DAILY PRN 90 days montelukast 10 mg PO DAILY tolterodine 1 mg PO BID Tobacco use date assessed: 09/04/23 Dental Screening Dental Screen Date: 09/04/23 Did you have a dental visit in the last 12 months?: Yes Did you have a dental problem in the last 6 months where you did not have access to dental care?: No Was dental information given to patient?: Patient has dentist HPI 6 month fu HPI Details Patient is 58-year-old female this is a regular follow-up appointment with the daughter Patient is doing well, offer no new complaints Blood pressure is stable patient is on atenolol 50 mg, tolerating medication Allergies are also controlled these days patient is on loratadine and montelukast. Urine incontinence is better with Tolterodine Continue atorvastatin 10 mg Diabetes: Continue glipizide 2.5 mg hemoglobin A1c is controlled. Patient is due for labs before next visit, order placed Still struggling with weight Follow-up 4 months [facility] Medical History Allergic rhinitis History of vertigo Lipid disorder Overactive bladder Anxiety, generalized Hypertension, essential (Unknown) Surgical History Hx of colonoscopy Hx of appendectomy Family History Father No problems noted. Mother No problems noted. Social History Housing: Apartment Alcohol intake: current Alcohol intake frequency: does not drink Patient Tobacco Use Status: Never used Tobacco e-Cigarette/Vaping Use: Never Used Second Hand Smoke Exposure: No service: No Current occupational status: unemployed Cognitive needs: No Hearing needs: No Vision needs: No Questionnaire Thrive Questionnaire Date Thrive assessed: 01/30/23 I am a: Patient What is your living situation today?: I have a steady place to live Within the past 12 months, did the food you bought not last and you didn't have the money to get more?: Never true Within the past 12 months, did you worry whether your food would run out before you got money to buy more?: Never true Please select the resources that you would like help with: None THRIVE Score: 0 AUDIT C Alcohol Use Questionnaire (AUDIT-C) 1. How often do you have a drink containing alcohol?: Never 3. How often do you have six or more drinks on one occasion?: Never Total Score: 0 PAT-7 AMB Questionnaire PAT-7 Date PAT - 7 assessed: 01/30/23 Feeling nervous, anxious, or on edge: 0 = Not at all Not being able to stop or control worryin = Not at all Worrying too much about different things: 0 = Not at all Trouble relaxin = Not at all Being so restless that it is hard to sit still: 0 = Not at all Becoming easily annoyed or irritable: 0 = Not at all Feeling afraid as if something awful might happen: 0 = Not at all Total PAT-7 score (0-4 normal; 5-9 mild; 10-14 moderate; 15-21 severe): 0 Source: Developed by Drs. Cleve L. PareshKati carrillo, Sander Beatty and colleagues, with an educational mellisa from [employer]. Review of Systems Const Denies chills and Denies fever(s) ENT Denies epistaxis and Denies nasal discharge Card Denies chest pain Resp Denies chest congestion, Denies cough and Denies hemoptysis GI Denies diarrhea and Denies nausea Skin/Breast Denies rash Neuro Reports no additional complaints Psych Reports no additional complaints Endo Reports no additional complaints Physical exam (Primary Care) Vital Signs: Last Vital Signs Pulse 60 09/04/23 13:59 BP 116/76 09/04/23 13:59 Pulse Ox 98 09/04/23 13:59 Oxygen Delivery Method Room Air 09/04/23 13:59 BMI result Body Mass Index 31.7 Tobacco/Smoking Status: Tobacco use Status Tobacco use date assessed 09/04/23 09/04/23 14:02 Patient Tobacco Use Status Never used Tobacco 09/04/23 14:02 e-Cigarette/Vaping Use Never Used 09/04/23 14:02 Thrive Assessment: Date of Thrive Assessment Date Thrive assessed 01/30/23 09/04/23 14:02 Const General: cooperative, comfortable and no acute distress Orientation/consciousness: patient oriented x3 HENMT Head: Yes normocephalic Eyes General: appearance normal, both eyes and all related structures Neck Neck: Yes supple Resp Effort & Inspection: normal respiratory effort, no cough and no stridor Cardio Rhythm: regular rhythm Heart sounds: S1 normal heart sound present and S2 normal heart sound present Skin General skin exam: turgor normal Neuro General: patient oriented x3, tone normal and moves all extremities Extrem Right lower extremity: no edema Left lower extremity: no edema Assessment and Plan Assessment & Plan (1) Diabetes mellitus type 2 in obese: Code(s): E11.69 - Type 2 diabetes mellitus with other specified complication; E66.9 - Obesity, unspecified (2) Hypertension, essential: Onset Date: Unknown Code(s): I10 - Essential (primary) hypertension (3) Lipid disorder: Code(s): E78.9 - Disorder of lipoprotein metabolism, unspecified (4) Overactive bladder: Code(s): N32.81 - Overactive bladder (5) Environmental allergies: Code(s): Z91.09 - Other allergy status, other than to drugs and biological substances (6) Obesity due to excess calories: Code(s): E66.09 - Other obesity due to excess calories Qualifiers: Obesity classification: adult class 1 (BMI 30 - 34.9) Serious obesity comorbidity presence: with serious comorbidity Body mass index: BMI 31.0-31.9 Qualified Code(s): E66.09 - Other obesity due to excess calories; Z68.31 - Body mass index [BMI] 31.0-31.9, adult Plan Patient is 58-year-old female this is a regular follow-up appointment with the daughter Patient is doing well, offer no new complaints Blood pressure is stable patient is on atenolol 50 mg, tolerating medication Allergies are also controlled these days patient is on loratadine and montelukast. Urine incontinence is better with Tolterodine Continue atorvastatin 10 mg Diabetes: Continue glipizide 2.5 mg hemoglobin A1c is controlled. Patient is due for labs before next visit, order placed Still struggling with weight Follow-up 4 months Orders: Orders Hemoglobin A1c Today E11.69 - Type 2 diabetes mellitus with other specified complication, E66.09 - Other obesity due to excess calories, E66.9 - Obesity, unspecified, E78.9 - Disorder of lipoprotein metabolism, unspecified, I10 - Essential (primary) hypertension, N32.81 - Overactive bladder, Z91.09 - Other allergy status, other than to drugs and biological substances Microalbumin, Random (w Creat) Today E11.69 - Type 2 diabetes mellitus with other specified complication, E66.09 - Other obesity due to excess calories, E66.9 - Obesity, unspecified, E78.9 - Disorder of lipoprotein metabolism, unspecified, I10 - Essential (primary) hypertension, N32.81 - Overactive b ladder, Z91.09 - Other allergy status, other than to drugs and biological substances Complete Blood Count Auto Diff Today E11.69 - Type 2 diabetes mellitus with other specified complication, E66.09 - Other obesity due to excess calories, E66.9 - Obesity, unspecified, E78.9 - Disorder of lipoprotein metabolism, unspecified, I10 - Essential (primary) hypertension, N32.81 - Overactive bladder, Z91.09 - Other allergy status, other than to drugs and biological substances Comprehensive Met. Panel Today E11.69 - Type 2 diabetes mellitus with other specified complication, E66.09 - Other obesity due to excess calories, E66.9 - Obesity, unspecified, E78.9 - Disorder of lipoprotein metabolism, unspecified, I10 - Essential (primary) hypertension, N32.81 - Overactive bladder, Z91.09 - Other allergy status, other than to drugs and biological substances Coding Level of Care Code Est Pt Level 4 (72395) Diagnoses Diabetes mellitus type 2 in obese E11.69; E66.9 Hypertension, essential I10 Lipid disorder E78.9 Overactive bladder N32.81 Environmental allergies Z91.09 Class 1 obesity due to excess calories with serious comorbidity and body mass index (BMI) of 31.0 to 31.9 in adult E66.09; Z68.31 Obesity classification: adult class 1 (BMI 30 - 34.9) Serious obesity comorbidity presence: with serious comorbidity Body mass index: BMI 31.0-31.9
== END 2023-09-04 14:13 | disposition home or self-care (01) ==
PROVIDERS: PCP Internal Medicine; Visit Provider Internal Medicine
DX: E11.69 Type 2 diabetes mellitus with other specified complication (principal); E66.9 Obesity, unspecified; I10 Essential (primary) hypertension; Z68.31 Body mass index [BMI] 31.0-31.9, adult; E78.9 Disorder of lipoprotein metabolism, unspecified; N32.81 Overactive bladder; Z91.09 Other allergy status, other than to drugs and biological substances; E66.09 Other obesity due to excess calories
CPT/HCPCS: 99214

== ENCOUNTER 2023-12-11 09:49 | Outpatient (REF) | payer OTHER, SELFPAY ==
[2023-12-11 13:21] LABS: MANUAL DIFF FLAG NO
[2023-12-11 13:34] LABS: Estimated Average Glucose 143 mg/dL; Hemoglobin A1C 146.0228 umol/L; Hemoglobin A1c % 6.6 % (<6.0)
[2023-12-11 13:42] LABS: Alanine Aminotransferase 20 U/L (0-31); Albumin Level 4.2 g/dL (3.5-5.0); Alkaline Phosphatase 89 U/L (39-117); Anion Gap 12 (12-20); Aspartate Amino Transferase 20 U/L (5-31); Bilirubin Total 0.3 mg/dL (0.0-1.0); Blood Urea Nitrogen 16 mg/dL (9-16); Calcium 9.8 mg/dL (8.4-10.2); Carbon Dioxide 28 mmol/L (22-29); Chloride 106 mmol/L (96-108); Estimated Glomerular Filt Rate > 60; Glucose Random 98 mg/dL (60-115); Potassium 4.1 mmol/L (3.3-5.1); Sodium 142 mmol/L (135-145); Total Protein 7.4 g/dL (6.5-8.0)
[2023-12-11 13:47] LABS: Basophils Percent Auto 0.4 % (0-2); Eosinophils Absolute Auto 0.1 X10*3/uL (0.0-0.4); Eosinophils Percent Auto 0.9 % (0-4); Hematocrit 36.3 % (37.0-47.0); Hemoglobin 11.2 g/dl (12.0-16.0); Imm Gran Abs Auto 0.01 X10*3/uL (0.00-0.03); Imm Gran Pct Auto 0.1 % (0.0-0.4); Lymphocytes Absolute Auto 2.7 X10*3/uL (1.2-4.9); Lymphocytes Percent Auto 34.4 % (20-40); Mean Corpuscular HGB Conc 30.9 g/dl (31.0-35.0); Mean Corpuscular Hemoglobin 25.9 pg (27.0-33.0); Mean Corpuscular Volume 83.8 fL (80.0-98.0); Mean Platelet Volume 10.4 fL (9.4-12.3); Monocytes Absolute Auto 0.4 X10*3/uL (0.1-1.2); Neutrophils Absolute Auto 4.6 x10*3/uL (2.0-8.3); Neutrophils Percent Auto 59.2 % (45-73); Platelet Count 343 X10*3/uL (160-400); Red Blood Count 4.33 X10*6/uL (4.20-5.50); White Blood Count 7.7 X10*3/uL (4.8-10.8)
== END 2023-12-11 09:50 | disposition home or self-care (01) ==
LOC: HO.HMGCLDS 09:49
PROVIDERS: Internal Medicine; PCP Internal Medicine; Visit Provider Internal Medicine
DX: E11.69 Type 2 diabetes mellitus with other specified complication (principal); E66.09 Other obesity due to excess calories; E78.9 Disorder of lipoprotein metabolism, unspecified; N32.81 Overactive bladder; I10 Essential (primary) hypertension; Z91.09 Other allergy status, other than to drugs and biological substances
CPT/HCPCS: 36415; 80053; 83036; 85025

== ENCOUNTER 2023-12-12 13:05 | Outpatient (REF) | payer OTHER, SELFPAY ==
[2023-12-12 13:38] LABS: Creatinine Urine 51.05 mg/dL; Microalbumin Urine < 5.0 mg/L
== END 2023-12-12 13:06 | disposition home or self-care (01) ==
LOC: HO.LNP 13:05
PROVIDERS: Visit Provider Internal Medicine
DX: E11.69 Type 2 diabetes mellitus with other specified complication (principal); E66.9 Obesity, unspecified; E66.09 Other obesity due to excess calories; Z91.09 Other allergy status, other than to drugs and biological substances; E78.9 Disorder of lipoprotein metabolism, unspecified; N32.81 Overactive bladder; I10 Essential (primary) hypertension
CPT/HCPCS: 82570

== ENCOUNTER 2024-01-13 13:54 | Outpatient (AMB) | payer OTHER, SELFPAY ==
[2024-01-13 14:01] VITALS: BP 142/88; PULSE 89; O2SAT 99; BMI 31.3
--- NOTE | 2024-01-13 14:01 | A.OFFPC_ITS ---
Vital Signs 01/13/24 14:01 Height 5 ft Weight 160 lb 2 oz BMI 31.3 BP 142/88 H Blood Pressure Location Lt brachial Position Sitting Pulse 89 Pulse Source Pulse Oximeter Pulse Oximetry (%) 99 Oxygen Delivery Method Room Air Intake Visit Reasons: 9mnt f/u Allergies fish Allergy (Intermediate, Verified 01/13/24 14:04) hives yogurt Allergy (Intermediate, Verified 01/13/24 14:04) hives amlodipine Adverse Reaction (Mild, Verified 01/13/24 14:04) ankle swelling hickery tree Allergy (Mild, Uncoded 01/30/23 10:56) Cough maple tree Allergy (Mild, Uncoded 01/30/23 10:56) Cough ragweed Allergy (Mild, Uncoded 01/30/23 10:56) Cough Medication List - Last Reconciled 01/13/24 by Barb Julian MD alcohol swabs (Alcohol Prep Pads) pad topical atenolol 50 mg PO DAILY 90 days atorvastatin 10 mg PO DAILY blood sugar diagnostic (FreeStyle Lite Strips) once a day fasting blood-glucose meter (FreeStyle Lite Meter kit) As directed cholecalciferol (vitamin D3) 50 mcg PO DAILY glipizide ER 2.5 mg PO DAILY 90 days lancets (FreeStyle Lancets) qd fasting loratadine 10 mg PO DAILY 90 days meclizine 25 mg PO DAILY PRN 90 days montelukast 10 mg PO DAILY tolterodine 1 mg PO BID Tobacco use date assessed: 01/13/24 Dental Screening Dental Screen Date: 01/13/24 Did you have a dental visit in the last 12 months?: Yes Did you have a dental problem in the last 6 months where you did not have access to dental care?: No Was dental information given to patient?: Patient has dentist HPI 9mnt f/u HPI Details Patient is 58-year-old female this is a regular follow-up appointment with her daughter Patient is complaining of leg pain posteriorly, she says that it feels like tension in her muscles On examination it seems as if she has developed strain of cervical portion of t rapezius both side Upon further questioning patient tells me that she has been reading book lot in the past few days Explained to patient that it is most likely because of that I am sending muscle relaxer to be taken at night only as needed , it will make her drowsy Blood pressure is slightly elevated today, patient is on atenolol 50 mg, tolerating medication Last visit is 116 x 76 Allergies are also controlled these days patient is on loratadine and montelukast. Urine incontinence is better with Tolterodine Continue atorvastatin 10 mg Diabetes: Continue glipizide 2.5 mg hemoglobin A1c is controlled. Labs done recently reviewed with the patient Hemoglobin A1c is 6.6 Hemoglobin dropped slightly to 11.2 it was 12 in August, we will continue to monitor She is developing osteoarthritis small joints of hand, she also have a disfigured index finger of right hand since which is more deformed than others at proximal interphalangeal joint Still struggling with weight Follow-up 4 months [facility] Medical History Allergic rhinitis History of vertigo Lipid disorder Overactive bladder Anxiety, generalized Hypertension, essential (Unknown) Surgical History Hx of colonoscopy Hx of appendectomy Family History Father No problems noted. Mother No problems noted. Social History Housing: Apartment Alcohol intake: current Alcohol intake frequency: does not drink Patient Tobacco Use Status: Never used Tobacco e-Cigarette/Vaping Use: Never Used Second Hand Smoke Exposure: No service: No Current occupational status: unemployed Cognitive needs: No Hearing needs: No Vision needs: No Questionnaire PHQ-9 Over the last 2 weeks, how often have you been bothered by any of the following problems? 1. Little interest or pleasure in doing things: not at all 2. Feeling down, depressed, or hopeless: not at all 3. Trouble falling or staying asleep, or sleeping too much: not at all 4. Feeling tired or having little energy: not at all 5. Poor appetite or overeating: not at all 6. Feeling bad about yourself - or that you are a failure or have let yourself or your family down: not at all 7. Trouble concentrating on things, such as reading the newspaper or watching television: not at all 8. Moving or speaking so slowly that other people could have noticed. Or the opposite - being so fidgety or restless that you have been moving around a lot more than usual: not at all 9. Thoughts that you would be better off or of hurting yourself in some way: not at all Total score: 0 Depression Screening Interpretation: Negative Depression Screening Done: Yes 88742 - PHQ-9 Billing: Yes Source: Developed by Drs. Cleve Yoder, Kati Young, Sander Beatty and colleagues, with an educational mellisa from [employer]. Thrive Questionnaire Date Thrive assessed: 01/13/24 I am a: Patient What is your living situation today?: I have a steady place to live Within the past 12 months, did the food you bought not last and you didn't have the money to get more?: Never true Within the past 12 months, did you worry whether your food would run out before you got money to buy more?: Never true Do you have trouble paying for medicines?: No Do you have trouble getting transportation to medical appointments?: No Do you have trouble paying your heating and electricity bill?: No Do you have trouble taking care of your child, family member or friend?: No Do you have trouble with day-to-day activities such as bathing, preparing meals, shopping, managing finances, etc.?: No Are you currently unemployed and looking for a job?: No Are you interested in more education?: No Please select the resources that you would like help with: Housing/Nursing Home Currently or been in a relationship where the following occur: No concerns reported THRIVE Score: 0 AUDIT C Alcohol Use Questionnaire (AUDIT-C) 1. How often do you have a drink containing alcohol?: Never 3. How often do you have six or more drinks on one occasion?: Never Total Score: 0 Score Reviewed/Action Taken: Yes PAT-7 AMB Questionnaire PAT-7 Date PAT - 7 assessed: 01/13/24 Feeling nervous, anxious, or on edge: 0 = Not at all Not being able to stop or control worryin = Not at all Worrying too much about different things: 0 = Not at all Trouble relaxin = Not at all Being so restless that it is hard to sit still: 0 = Not at all Becoming easily annoyed or irritable: 0 = Not at all Feeling afraid as if something awful might happen: 0 = Not at all Total PAT-7 score (0-4 normal; 5-9 mild; 10-14 moderate; 15-21 severe): 0 Source: Developed by Drs. Cleve Yoder, Kati Young, Sander Beatty and colleagues, with an educational mellisa from [employer]. PAT-7 Assessment Billing PAT-7 Assessment Tool: PAT-7 Assessment 70479 Review of Systems Const Denies chills and Denies fever(s) ENT Denies epistaxis and Denies nasal discharge Card Denies chest pain Resp Denies chest congestion, Denies cough and Denies hemoptysis GI Denies diarrhea and Denies nausea Skin/Breast Denies rash Neuro Reports no additional complaints Psych Reports no additional complaints Endo Reports no additional complaints Physical exam (Primary Care) Vital Signs: Last Vital Signs Pulse 89 01/13/24 14:01 BP 142/88 H 01/13/24 14:01 Pulse Ox 99 01/13/24 14:01 Oxygen Delivery Method Room Air 01/13/24 14:01 BMI result Body Mass Index 31.3 Tobacco/Smoking Status: Tobacco use Status Tobacco use date assessed 01/13/24 01/13/24 14:04 Patient Tobacco Use Status Never used Tobacco 01/13/24 14:04 e-Cigarette/Vaping Use Never Used 01/13/24 14:04 PHQ-9: PHQ-9 Score PHQ-9: Total score 0 01/13/24 14:04 Depression Screening Interpretation: Negative Thrive Assessment: Date of Thrive Assessment Date Thrive assessed 01/13/24 01/13/24 14:04 Currently or been in a relationship where the following occur: No concerns reported Const General: cooperative, comfortable and no acute distress Orientation/consciousness: patient oriented x3 HENMT Head: Yes normocephalic Eyes General: appearance normal, both eyes and all related structures Neck Neck: Yes supple Resp Effort & Inspection: normal respiratory effort, no cough and no stridor Cardio Rhythm: regular rhythm Heart sounds: S1 normal heart sound present and S2 normal heart sound present Skin General skin exam: turgor normal Neuro General: patient oriented x3, tone normal and moves all extremities Extrem Right lower extremity: no edema Left lower extremity: no edema Assessment and Plan Assessment & Plan (1) Diabetes mellitus type 2 in obese: Code(s): E11.69 - Type 2 diabetes mellitus with other specified complication; E66.9 - Obesity, unspecified (2) Hypertension, essential: Onset Date: Unknown Code(s): I10 - Essential (primary) hypertension (3) Strain of cervical portion of both trapezius muscles: Code(s): S16.1XXA - Strain of muscle, fascia and tendon at neck level, initial encounter (4) Lipid disorder: Code(s): E78.9 - Disorder of lipoprotein metabolism, unspecified (5) Overactive bladder: Code(s): N32.81 - Overactive bladder (6) Environmental allergies: Code(s): Z91.09 - Other allergy status, other than to drugs and biological substances (7) Obesity due to excess calories: Code(s): E66.09 - Other obesity due to excess calories Qualifiers: Obesity classification: adult class 1 (BMI 30 - 34.9) Serious obesity comorbidity presence: with serious comorbidity Body mass index: BMI 31.0-31.9 Qualified Code(s): E66.09 - Other obesity due to excess calories; Z68.31 - Body mass index [BMI] 31.0-31.9, adult (8) Osteoarthritis of hands, bilateral: Code(s): M19.041 - Primary osteoarthritis, right hand; M19.042 - Primary osteoarthritis, left hand Qualifiers: Osteoarthritis type: primary Qualified Code(s): M19.041 - Primary osteoarthritis, right hand; M19.042 - Primary osteoarthritis, left hand Plan Patient is 58-year-old female this is a regular follow-up appointment with her daughter Patient is complaining of leg pain posteriorly, she says that it feels like tension in her muscles On examination it seems as if she has developed strain of cervical portion of trapezius both side Upon further questioning patient tells me that she has been reading book lot in the past few days Explained to patient that it is most likely because of that I am sending muscle relaxer to be taken at night only as needed , it will make her drowsy Blood pressure is slightly elevated today, patient is on atenolol 50 mg, tolerating medication Last visit is 116 x 76 Allergies are also controlled these days patient is on loratadine and montelukast. Urine incontinence is better with Tolterodine Continue atorvastatin 10 mg Diabetes: Continue glipizide 2.5 mg hemoglobin A1c is controlled. Labs done recently reviewed with the patient Hemoglobin A1c is 6.6 Hemoglobin dropped slightly to 11.2 it was 12 in August, we will continue to monitor She is developing osteoarthritis small joints of hand, she also have a disfigured index finger of right hand since which is more deformed than others at proximal interphalangeal joint Still struggling with weight Follow-up 4 months Medications: Changed From cyclobenzaprine 10 mg PO BEDTIME 14 tabs 0RF for leg pain To cyclobenzaprine 5 mg PO BEDTIME 30 tabs 0RF Neck pain Coding Level of Care Code Est Pt Level 4 (53680) Complex EM visit Add On G2211 Diagnoses Diabetes mellitus type 2 in obese E11.69; E66.9 Hypertension, essential I10 Strain of cervical portion of both trapezius muscles S16.1XXA Lipid disorder E78.9 Overactive bladder N32.81 Environmental allergies Z91.09 Class 1 obesity due to excess calories with serious comorbidity and body mass index (BMI) of 31.0 to 31.9 in adult E66.09; Z68.31 Obesity classification: adult class 1 (BMI 30 - 34.9) Serious obesity comorbidity presence: with serious comorbidity Body mass index: BMI 31.0-31.9 Primary osteoarthritis of both hands M19.041; M19.042 Osteoarthritis type: primary Additional Codes PAT-7 Assessment Billing - PAT-7 Assessment Tool: PAT-7 Assessment [id number] ([id number])
== END 2024-01-13 14:46 | disposition home or self-care (01) ==
PROVIDERS: PCP Internal Medicine; Visit Provider Internal Medicine
DX: E11.69 Type 2 diabetes mellitus with other specified complication (principal); E66.9 Obesity, unspecified; Z68.31 Body mass index [BMI] 31.0-31.9, adult; N32.81 Overactive bladder; I10 Essential (primary) hypertension; S16.1XXA Strain of muscle, fascia and tendon at neck level, initial encounter; E78.9 Disorder of lipoprotein metabolism, unspecified; Z91.09 Other allergy status, other than to drugs and biological substances; E66.09 Other obesity due to excess calories; M19.041 Primary osteoarthritis, right hand; M19.042 Primary osteoarthritis, left hand
CPT/HCPCS: 99214; G2211

== ENCOUNTER 2024-02-12 15:31 | Outpatient (REF) | payer OTHER, SELFPAY ==
--- NOTE | ~2024-02-12 | MM_ITS ---
EXAMINATION: MM SCREENING DIGITAL BREAST TOMOSYNTHESIS, BILATERAL CLINICAL INFORMATION: Screening. Asymptomatic. COMPARISON: Mammography: Comparison is made with available priors TECHNIQUE: Digital breast mammography with tomosynthesis is performed in both the craniocaudal and mediolateral oblique views along with computer-aided detection (CAD). FINDINGS: There are scattered areas of fibroglandular density (ACR BI-RADS breast composition Category b). There are no significant masses, abnormal calcifications, or other abnormalities. MM/MM tomosynthesis screening BI IMPRESSION: No mammographic evidence of malignancy. ASSESSMENT: BI-RADS BI-RADS 1 - Negative RECOMMENDATION: Routine annual mammography screening. 1 year F/U This examination should not preclude the clinical evaluation of a suspicious palpable abnormality. This patient's information was entered into a reminder system with a target due date for their next mammogram. Electronically signed by: Carolyn Miles DO 02/28/2024 07:02 PM EDT
== END 2024-02-12 15:32 | disposition home or self-care (01) ==
LOC: HO.MAMMO 15:31
PROVIDERS: PCP Internal Medicine; Visit Provider Internal Medicine
DX: Z12.31 Encounter for screening mammogram for malignant neoplasm of breast (principal)
CPT/HCPCS: 77063; 77067

== ENCOUNTER → 2024-02-12 16:00 | Outpatient (BNV) | payer OTHER, SELFPAY | PROVIDERS: PCP Internal Medicine; Visit Provider Internal Medicine | DX: Z12.31 Encounter for screening mammogram for malignant neoplasm of breast (principal) | CPT/HCPCS: 77063; 77067 ==

== ENCOUNTER 2024-08-31 15:21 | Outpatient (AMB) | payer OTHER, SELFPAY ==
--- NOTE | 2024-08-31 15:28 | MHC.PC.OV ---
Vital Signs 08/31/24 15:29 Height 5 ft Weight 163 lb BMI 31.8 BP 126/78 Blood Pressure Location Lt brachial Position Sitting Pulse 73 Pulse Source Pulse Oximeter Pulse Oximetry (%) 99 Oxygen Delivery Method Room Air Intake Visit Reasons: Annual PE Allergies fish Allergy (Intermediate, Verified 08/31/24 15:29) hives yogurt Allergy (Intermediate, Verified 08/31/24 15:29) hives amlodipine Adverse Reaction (Mild, Verified 08/31/24 15:29) ankle swelling hickery tree Allergy (Mild, Uncoded 01/30/23 10:56) Cough maple tree Allergy (Mild, Uncoded 01/30/23 10:56) Cough ragweed Allergy (Mild, Uncoded 01/30/23 10:56) Cough Medication List - Last Reconciled 08/31/24 by Barb Julian MD alcohol swabs (Alcohol Prep Pads) pad topical atenolol 50 mg PO DAILY 90 days atorvastatin 10 mg PO DAILY blood sugar diagnostic (FreeStyle Lite Strips) once a day fasting blood-glucose meter (FreeStyle Lite Meter kit) As directed cholecalciferol (vitamin D3) 50 mcg PO DAILY cyclobenzaprine 5 mg PO BEDTIME glipizide ER 2.5 mg PO DAILY 90 days lancets (FreeStyle Lancets) qd fasting loratadine 10 mg PO DAILY 90 days meclizine 25 mg PO DAILY PRN 90 days montelukast 10 mg PO DAILY tolterodine 1 mg PO BID Tobacco use date assessed: 08/31/24 Dental Screening Dental Screen Date: 08/31/24 Did you have a dental visit in the last 12 months?: Yes Did you have a dental problem in the last 6 months where you did not have access to dental care?: No Was dental information given to patient?: Patient has dentist HPI Annual PE HPI Details Physical exam appointment - The patient is a 59-year-old female with a history of hypertension, obesity, allergies, lipid disorder, diabetes, stress incontinence presenting for a wellness visit and follow-up on health maintenance items. - Previous colonoscopy conducted in 2020 with inadequate preparation results; follow-up screening is recommended for three years. - Annual mammogram is due in February. - Dermatological issues noted; no new growth. Past consultations with laser beam cutter did not require immediate action. - Pending blood tests to assess blood sugar levels due to reported concerns. - Reports weight gain with a BMI of 31.8; obesity management discussed. Health Maintenance - Mammogram due in February. - Conversation around healthy lifestyle management including weight loss for obesity. - Follow-up blood tests ordered to address blood sugar concerns. Medications - Atenolol 50 mg: For hypertension management - Atorvastatin 10 mg: For cholesterol management - Vitamin D: Supplementation - Glipizide 2.5 mg: For blood sugar management - Loratadine 10 mg: For allergic reactions - Montelukast 10 mg: For allergy control Patient Instructions - Follow scheduled colonoscopy for colorectal cancer screening. - Ensure completion of the pending mammogram in February. - Adhere to prescribed medications. - Weight management to address obesity concerns. - Undergo scheduled blood tests to monitor blood sugar levels. - Schedule and attend follow-up appointments as needed. Review of Systems - General: No fever no chills - Neurological: No headaches no dizziness - Ear nose throat: No sore throat no hearing difficulty no ear pain - Cardiovascular: No syncope, no chest pain, no palpitations - Gastrointestinal: No nausea vomiting or diarrhea - Endocrine: No polyuria polydipsia no heat intolerance - Genitourinary: No dysuria - Skin: No new complaints Physical Exam General: Cooperative, healthy appearing, comfortable, no acute distress Orientation: Patient oriented x3 Head: Normal to inspection Ears: Within normal limit visually Nose: Normal external nose present Face and sinus: Normal facial exam Eyes: Appearance normal, extraocular movement intact pupils reactive Neck: Normal visual inspection and supple Respiratory: Normal respiratory effort and able to speak in complete sentences. Clear to auscultation, no stridor Cardiovascular: S1 and S2 regular in rate and rhythm Breast exam benign GI: Normal to inspection. Soft to palpation and nontender Skin: Turgor normal, no acute findings, no rash or any moles changing Neuro: Patient oriented x3, motor sensory intact, balance intact, tandem pass Extremities: Normal to inspection [facility] Medical History Allergic rhinitis History of vertigo Lipid disorder Overactive bladder Anxiety, generalized Hypertension, essential (Unknown) Surgical History Hx of colonoscopy Hx of appendectomy Family History Father No problems noted. Mother No problems noted. Social History Housing: Apartment Alcohol intake: current Alcohol intake frequency: does not drink Patient Tobacco Use Status: Never used Tobacco e-Cigarette/Vaping Use: Never Used Second Hand Smoke Exposure: No service: No Current occupational status: unemployed Cognitive needs: No Hearing needs: No Vision needs: No Questionnaire PHQ-9 Over the last 2 weeks, how often have you been bothered by any of the following problems? 1. Little interest or pleasure in doing things: not at all 2. Feeling down, depressed, or hopeless: not at all 3. Trouble falling or staying asleep, or sleeping too much: not at all 4. Feeling tired or having little energy: not at all 5. Poor appetite or overeating: not at all 6. Feeling bad about yourself - or that you are a failure or have let yourself or your family down: not at all 7. Trouble concentrating on things, such as reading the newspaper or watching television: not at all 8. Moving or speaking so slowly that other people could have noticed. Or the opposite - being so fidgety or restless that you have been moving around a lot more than usual: not at all 9. Thoughts that you would be better off or of hurting yourself in some way: not at all Total score: 0 Depression Screening Interpretation: Negative Depression Screening Done: Yes 40082 - PHQ-9 Billing: Yes Source: Developed by Drs. Cleve Yoder, Kati Young, Sander Beatty and colleagues, with an educational mellisa from [employer] - [place]. Thrive Questionnaire Date Thrive assessed: 08/31/24 I am a: Patient What is your living situation today?: I have a steady place to live Within the past 12 months, did the food you bought not last and you didn't have the money to get more?: Never true Within the past 12 months, did you worry whether your food would run out before you got money to buy more?: Never true Do you have trouble paying for medicines?: No Do you have trouble getting transportation to medical appointments?: No Do you have trouble paying your heating and electricity bill?: No Do you have trouble taking care of your child, family member or friend?: No Do you have trouble with day-to-day activities such as bathing, preparing meals, shopping, managing finances, etc.?: No Are you currently unemployed and looking for a job?: No Are you interested in more education?: No Please select the resources that you would like help with: None Currently or been in a relationship where the following occur: No concerns reported THRIVE Score: 0 AUDIT C Alcohol Use Questionnaire (AUDIT-C) 1. How often do you have a drink containing alcohol?: Never 3. How often do you have six or more drinks on one occasion?: Never Total Score: 0 Score Reviewed/Action Taken: Yes PAT-7 AMB Questionnaire PAT-7 Date PAT - 7 assessed: 08/31/24 Feeling nervous, anxious, or on edge: 0 = Not at all Not being able to stop or control worryin = Not at all Worrying too much about different things: 0 = Not at all Trouble relaxin = Not at all Being so restless that it is hard to sit still: 0 = Not at all Becoming easily annoyed or irritable: 0 = Not at all Feeling afraid as if something awful might happen: 0 = Not at all Total PAT-7 score (0-4 normal; 5-9 mild; 10-14 moderate; 15-21 severe): 0 Source: Developed by Drs. Cleve Yoder, Kati Young, Sander Beatty and colleagues, with an educational mellisa from [employer] - [place]. PAT-7 Assessment Billing PAT-7 Assessment Tool: PAT-7 Assessment 17135 Physical exam (Primary Care) Vital Signs: Last Vital Signs Pulse 73 08/31/24 15:29 BP 126/78 08/31/24 15:29 Pulse Ox 99 08/31/24 15:29 Oxygen Delivery Method Room Air 08/31/24 15:29 BMI result Body Mass Index 31.8 Tobacco/Smoking Status: Tobacco use Status Tobacco use date assessed 08/31/24 08/31/24 15:30 Patient Tobacco Use Status Never used Tobacco 08/31/24 15:30 e-Cigarette/Vaping Use Never Used 08/31/24 15:30 PHQ-9: PHQ-9 Score PHQ-9: Total score 0 08/31/24 15:30 Depression Screening Interpretation: Negative Thrive Assessment: Date of Thrive Assessment Date Thrive assessed 08/31/24 08/31/24 15:30 Currently or been in a relationship where the following occur: No concerns reported Coding Level of Care Code Est Pt Level 3 (94469) Est Pt Prev Care 40-64y(82877) Diagnoses Encounter for general adult medical examination with abnormal findings Z00.01 Muscle soreness M79.10 Hypertension, essential I10 Overactive bladder N32.81 Lipid disorder E78.9 Type 2 diabetes mellitus with other specified complication, without long-term current use of insulin E11.69 Diabetes mellitus type: type 2 Diabetes mellitus intermediate accountant insulin use: without half-way use Diabetes mellitus complication status: with other specified complication Environmental allergies Z91.09 Tubular adenoma of colon D12.6 Class 1 obesity due to excess calories with serious comorbidity and body mass index (BMI) of 31.0 to 31.9 in adult E66.09; Z68.31 Body mass index: BMI 31.0-31.9 Obesity classification: adult class 1 (BMI 30 - 34.9) Serious obesity comorbidity presence: with serious comorbidity Primary osteoarthritis of both hands M19.041; M19.042 Osteoarthritis type: primary Additional Codes PAT-7 Assessment Billing - APT-7 Assessment Tool: PAT-7 Assessment 48757 ([id number]) PHQ-9 - 88177 - PHQ-9 Billing: Yes ([id number]) Assessment & Plan Assessment & Plan (1) Encounter for general adult medical examination with abnormal findings: Code(s): Z00.01 - Encounter for general adult medical examination with abnormal findings Category: Medical (2) Muscle soreness: Code(s): M79.10 - Myalgia, unspecified site Category: Medical (3) Hypertension, essential: Onset Date: Unknown Code(s): I10 - Essential (primary) hypertension Category: Medical (4) Overactive bladder: Code(s): N32.81 - Overactive bladder Category: Medical (5) Lipid disorder: Code(s): E78.9 - Disorder of lipoprotein metabolism, unspecified Category: Medical (6) Diabetes: Code(s): E11.9 - Type 2 diabetes mellitus without complications Category: Medical Qualifiers: Diabetes mellitus type: type 2 Diabetes mellitus half-way insulin use: without half-way use Diabetes mellitus complication status: with other specified complication Qualified Code(s): E11.69 - Type 2 diabetes mellitus with other specified complication (7) Environmental allergies: Code(s): Z91.09 - Other allergy status, other than to drugs and biological substances Category: Medical (8) Tubular adenoma of colon: Comment: Sessile tubular adenoma in 2020 scope with insufficient prep repeat in 3 years Code(s): D12.6 - Benign neoplasm of colon, unspecified Category: Medical (9) Obesity due to excess calories: Code(s): E66.09 - Other obesity due to excess calories Category: Medical Qualifiers: Body mass index: BMI 31.0-31.9 Obesity classification: adult class 1 (BMI 30 - 34.9) Serious obesity comorbidity presence: with serious comorbidity Qualified Code(s): E66.09 - Other obesity due to excess calories; Z68.31 - Body mass index [BMI] 31.0-31.9, adult (10) Osteoarthritis of hands, bilateral: Code(s): M19.041 - Primary osteoarthritis, right hand; M19.042 - Primary osteoarthritis, left hand Category: Medical Qualifiers: Osteoarthritis type: primary Qualified Code(s): M19.041 - Primary osteoarthritis, right hand; M19.042 - Primary osteoarthritis, left hand Plan Physical exam appointment - The patient is a 59-year-old female with a history of hypertension, obesity, allergies, lipid disorder, diabetes, stress incontinence presenting for a wellness visit and follow-up on health maintenance items. - Previous colonoscopy conducted in 2020 with inadequate preparation results; follow-up screening is recommended for three years. - Annual mammogram is due in February. - Dermatological issues noted; no new growth. Past consultations with laser beam cutter did not require immediate action. - Pending blood tests to assess blood sugar levels due to reported concerns. - Reports weight gain with a BMI of 31.8; obesity management discussed. 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 - Conversation around healthy lifestyle management including weight loss for obesity. - Follow-up blood tests ordered to address blood sugar concerns. Medications - Atenolol 50 mg: For hypertension management - Atorvastatin 10 mg: For cholesterol management - Vitamin D: Supplementation - Glipizide 2.5 mg: For blood sugar management - Loratadine 10 mg: For allergic reactions - Montelukast 10 mg: For allergy control Patient Instructions - Follow scheduled colonoscopy for colorectal cancer screening. - Ensure completion of the pending mammogram in February. - Adhere to prescribed medications. - Weight management to address obesity concerns. - Undergo scheduled blood tests to monitor blood sugar levels. - Schedule and attend follow-up appointments as needed. Orders: Orders Comprehensive [place]. Panel Fast Today D12.6 - Benign neoplasm of colon, unspecified, E11.9 - Type 2 diabetes mellitus without complications, E66.09 - Other obesity due to excess calories, E78.9 - Disorder of lipoprotein metabolism, unspecified, I10 - Essential (primary) hypertension, M19.041 - Primary osteoarthritis, right hand, M19.042 - Primary osteoarthritis, left hand, N32.81 - Overactive bladder, Z00.01 - Encounter for general adult medical examination with abnormal findings, Z68.31 - Body mass index [BMI] 31.0-31.9, adult, Z91.09 - Other allergy status, other than to drugs and biological substances Microalbumin, Random (w Creat) Today D12.6 - Benign neoplasm of colon, unspecified, E11.9 - Type 2 diabetes mellitus without complications, E66.09 - Other obesity due to excess calories, E78.9 - Disorder of lipoprotein metabolism, unspecified, I10 - Essential (primary) hypertension, M19.041 - Primary osteoarthritis, right hand, M19.042 - Primary osteoarthritis, left hand, N32.81 - Overactive bladder, Z00.01 - Encounter for general adult medical examination with abnormal findings, Z68.31 - Body mass index [BMI] 31.0-31.9, adult, Z91.09 - Other allergy status, other than to drugs and biological substances Hemoglobin A1c Today D12.6 - Benign neoplasm of colon, unspecified, E11.9 - Type 2 diabetes mellitus without complications, E66.09 - Other obesity due to excess calories, E78.9 - Disorder of lipoprotein metabolism, unspecified, I10 - Essential (primary) hypertension, M19.041 - Primary osteoarthritis, right hand, M19.042 - Primary osteoarthritis, left hand, N32.81 - Overactive bladder, Z00.01 - Encounter for general adult medical examination with abnormal findings, Z68.31 - Body mass index [BMI] 31.0-31.9, adult, Z91.09 - Other allergy status, other than to drugs and biological substances Complete Blood Count Auto Diff Today D12.6 - Benign neoplasm of colon, unspecified, E11.9 - Type 2 diabetes mellitus without complications, E66.09 - Other obesity due to excess calories, E78.9 - Disorder of lipoprotein metabolism, unspecified, I10 - Essential (primary) hypertension, M19.041 - Primary osteoarthritis, right hand, M19.042 - Primary osteoarthritis, left hand, N32.81 - Overactive bladder, Z00.01 - Encounter for general adult medical examination with abnormal findings, Z68.31 - Body mass index [BMI] 31.0-31.9, adult, Z91.09 - Other allergy status, other than to drugs and biological substances Lipid Panel Today D12.6 - Benign neoplasm of colon, unspecified, E11.9 - Type 2 diabetes mellitus without complications, E66.09 - Other obesity due to excess calories, E78.9 - Disorder of lipoprotein metabolism, unspecified, I10 - Essential (primary) hypertension, M19.041 - Primary osteoarthritis, right hand, M19.042 - Primary osteoarthritis, left hand, N32.81 - Overactive bladder, Z00.01 - Encounter for general adult medical examination with abnormal findings, Z68.31 - Body mass index [BMI] 31.0-31.9, adult, Z91.09 - Other allergy status, other than to drugs and biological substances Referrals Gastroenterology Referral D12.6 - Benign neoplasm of colon, unspecified 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
[2024-08-31 15:29] VITALS: BP 126/78; PULSE 73; O2SAT 99; BMI 31.8
== END 2024-08-31 15:47 | disposition home or self-care (01) ==
LOC: HO.HMCC 15:22
PROVIDERS: PCP Internal Medicine; Visit Provider Internal Medicine
DX: Z00.00 Encounter for general adult medical examination without abnormal findings (principal); E11.69 Type 2 diabetes mellitus with other specified complication; M79.10 Myalgia, unspecified site; I10 Essential (primary) hypertension; N32.81 Overactive bladder; E78.9 Disorder of lipoprotein metabolism, unspecified; Z91.09 Other allergy status, other than to drugs and biological substances; D12.6 Benign neoplasm of colon, unspecified; E66.09 Other obesity due to excess calories; Z68.31 Body mass index [BMI] 31.0-31.9, adult; M19.041 Primary osteoarthritis, right hand; M19.042 Primary osteoarthritis, left hand

== ENCOUNTER → 2024-08-31 15:21 | Outpatient (BNVA) | payer OTHER, SELFPAY | PROVIDERS: PCP Internal Medicine; Visit Provider Internal Medicine | DX: Z00.01 Encounter for general adult medical examination with abnormal findings (principal); M79.10 Myalgia, unspecified site; I10 Essential (primary) hypertension; N32.81 Overactive bladder; E78.9 Disorder of lipoprotein metabolism, unspecified; E11.69 Type 2 diabetes mellitus with other specified complication; E66.09 Other obesity due to excess calories; Z68.31 Body mass index [BMI] 31.0-31.9, adult; M19.041 Primary osteoarthritis, right hand; M19.042 Primary osteoarthritis, left hand; D12.6 Benign neoplasm of colon, unspecified; Z91.09 Other allergy status, other than to drugs and biological substances | CPT/HCPCS: 96127; 99396 ==

== ENCOUNTER 2024-09-10 10:07 | Outpatient (REF) | payer OTHER, SELFPAY ==
[2024-09-10 11:46] LABS: MANUAL DIFF FLAG NO
[2024-09-10 12:00] LABS: Estimated Average Glucose 148 mg/dL; Hemoglobin A1C 156.2127 umol/L; Hemoglobin A1c % 6.8 % (<6.0); Total Hemoglobin (HGBA1C) 3090.4028 umol/L
[2024-09-10 12:05] LABS: Basophils Absolute Auto 0.1 X10*3/uL (0.0-0.2); Basophils Percent Auto 0.7 % (0-2); Eosinophils Absolute Auto 0.1 X10*3/uL (0.0-0.4); Eosinophils Percent Auto 1.8 % (0-4); Hematocrit 36.4 % (37.0-47.0); Hemoglobin 11.5 g/dl (12.0-16.0); Imm Gran Abs Auto 0.01 X10*3/uL (0.00-0.03); Imm Gran Pct Auto 0.1 % (0.0-0.4); Lymphocytes Absolute Auto 2.2 X10*3/uL (1.2-4.9); Lymphocytes Percent Auto 30.4 % (20-40); Mean Corpuscular HGB Conc 31.6 g/dl (31.0-35.0); Mean Corpuscular Hemoglobin 26.4 pg (27.0-33.0); Mean Corpuscular Volume 83.5 fL (80.0-98.0); Mean Platelet Volume 10.2 fL (9.4-12.3); Monocytes Absolute Auto 0.4 X10*3/uL (0.1-1.2); Monocytes Percent Auto 5.2 % (2-11); Neutrophils Absolute Auto 4.5 x10*3/uL (2.0-8.3); Neutrophils Percent Auto 61.8 % (45-73); Platelet Count 320 X10*3/uL (160-400); Red Blood Count 4.36 X10*6/uL (4.20-5.50); Red Cell Distribution Width 14.4 % (11.0-16.0); White Blood Count 7.2 X10*3/uL (4.8-10.8)
[2024-09-10 12:18] LABS: Creatinine Urine 47.74 mg/dL; Microalbumin Urine < 5.0 mg/L
[2024-09-10 12:20] LABS: Alanine Aminotransferase 24 U/L (0-31); Albumin Level 4.1 g/dL (3.5-5.0); Alkaline Phosphatase 80 U/L (39-117); Anion Gap 12 (12-20); Aspartate Amino Transferase 27 U/L (5-31); Bilirubin Total 0.3 mg/dL (0.0-1.0); Blood Urea Nitrogen 20 mg/dL (9-16); Calcium 9.7 mg/dL (8.4-10.2); Carbon Dioxide 26 mmol/L (22-29); Chloride 110 mmol/L (96-108); Cholesterol 167 mg/dL (<200); Estimated Glomerular Filt Rate > 60; Glucose Fasting 109 mg/dL (60-99); HDL Cholesterol 65 mg/dL (>40); LDL Cholesterol Calculated 83 mg/dL (<100); Potassium 4.8 mmol/L (3.3-5.1); Sodium 143 mmol/L (135-145); Triglycerides 99 mg/dL (<150)
== END 2024-09-10 10:08 | disposition home or self-care (01) ==
LOC: HO.HMGCLDS 10:07
PROVIDERS: PCP Internal Medicine; Visit Provider Internal Medicine
DX: Z00.01 Encounter for general adult medical examination with abnormal findings (principal); I10 Essential (primary) hypertension; N32.81 Overactive bladder; E78.9 Disorder of lipoprotein metabolism, unspecified; E11.9 Type 2 diabetes mellitus without complications; Z91.09 Other allergy status, other than to drugs and biological substances; D12.6 Benign neoplasm of colon, unspecified; E66.09 Other obesity due to excess calories; M19.041 Primary osteoarthritis, right hand; M19.042 Primary osteoarthritis, left hand; Z68.31 Body mass index [BMI] 31.0-31.9, adult
CPT/HCPCS: 36415; 80053; 80061; 82043; 82570; 83036; 85025

== ENCOUNTER 2024-11-30 14:52 | Outpatient (AMB) | payer OTHER, SELFPAY ==
[2024-11-30 14:55] VITALS: BP 110/72; PULSE 64; RESP 15; TEMP 36.8; O2SAT 96; BMI 30.9
--- NOTE | 2024-11-30 14:55 | A.OFFPC_ITS ---
Vital Signs 11/30/24 14:55 Height 5 ft Weight 158 lb BMI 30.9 BP 110/72 Blood Pressure Location Rt brachial Position Sitting Respiration 15 Pulse 64 Pulse Source Pulse Oximeter Temp 98.2 F Temp Source Oral Pulse Oximetry (%) 96 Oxygen Delivery Method Room Air Intake Visit Reasons: 3m follow up Allergies fish Allergy (Intermediate, Verified 11/30/24 14:57) hives yogurt Allergy (Intermediate, Verified 11/30/24 14:57) hives amlodipine Adverse Reaction (Mild, Verified 11/30/24 14:57) ankle swelling hickery tree Allergy (Mild, Uncoded 11/30/24 14:57) Cough maple tree Allergy (Mild, Uncoded 11/30/24 14:57) Cough ragweed Allergy (Mild, Uncoded 11/30/24 14:57) Cough Medication List - Last Reconciled 11/30/24 by Barb Julian MD alcohol swabs (Alcohol Prep Pads) pad topical atenolol 50 mg PO DAILY 90 days atorvastatin 10 mg PO DAILY blood sugar diagnostic (FreeStyle Lite Strips) once a day fasting blood-glucose meter (FreeStyle Lite Meter kit) As directed cholecalciferol (vitamin D3) 50 mcg PO DAILY glipizide ER 2.5 mg PO DAILY 90 days lancets (FreeStyle Lancets) qd fasting loratadine 10 mg PO DAILY 90 days meclizine 25 mg PO DAILY PRN 90 days montelukast 10 mg PO DAILY multivitamin 1 tab PO DAILY tolterodine 1 mg PO BID Tobacco use date assessed: 11/30/24 Dental Screening Dental Screen Date: 11/30/24 Did you have a dental visit in the last 12 months?: Yes Did you have a dental problem in the last 6 months where you did not have access to dental care?: Yes Was dental information given to patient?: Patient has dentist HPI 3m follow up HPI Details History - The patient is a 59-year-old female pr esenting with regular follow-up for chronic condition management. This is ongoing care - Type 2 Diabetes Mellitus: The patient' s HbA1c was 6.8% in September, showing a gradual increase from 6.4% in August of the previous year and 6.6% in December. - Hypertension: The patient is currently on atenolol 50 mg for blood pressure management. - Hyperlipidemia: The patient is taking atorvastatin for cholesterol management. - Allergic Rhinitis: The patient is taki ng montelukast for allergy management. Problem List - Type 2 Diabetes Mellitus - Hypertension - Hyperlipidemia - Allergic Rhinitis Patient Instructions - Continue taking prescribed medications including atenolol, atorvastatin, glipizide, and montelukast. - Monitor blood sugar levels regularly, especially in the morning. - Schedule a follow-up appointment for b lood tests as discussed. Review of Systems - General: No fever no chills - Neurological: No headaches no dizziness - Ear nose throat: No sore throat no hearing difficulty no ear pain - Cardiovascular: No syncope, no chest pain, no palpitations - Gastrointestinal: No nausea vomiting or diarrhea - Endocrine: No polyuria polydipsia no heat intolerance - Genitourinary: No dysuria , no blood in urine Physical Exam - General: No acute distress - HEENT: No acute findings - Neck: Supple - Respiratory system: Able to talk in f ull sentences, no audible wheeze - Cardiovascular: S1-S2 regular in rate and rhythm - Gastrointestinal: No pain - Extremities: No new findings - BENZENE OPERATOR: Alert awake oriented x3 motor se nsory intact - Skin: Normal turgor [facility] Medical History Allergic rhinitis History of vertigo Lipid disorder Overactive bladder Anxiety, generalized Hypertension, essential (Unknown) Surgical History Hx of colonoscopy Hx of appendectomy Family History Father No problems noted. Mother No problems noted. Social History Housing: Apartment Alcohol intake: current Alcohol intake frequency: does not drink Patient Tobacco Use Status: Never used Tobacco e-Cigarette/Vaping Use: Never Used Second Hand Smoke Exposure: No service: No Current occupational status: unemployed Cognitive needs: No Hearing needs: No Vision needs: No Questionnaire Thrive Questionnaire Date Thrive assessed: 08/27/24 I am a: Patient What is your living situation today?: I have a steady place to live Within the past 12 months, did the food you bought not last and you didn't have the money to get more?: Never true Within the past 12 months, did you worry whether your food would run out before you got money to buy more?: Never true Do you have trouble paying for medicines?: No Do you have trouble getting transportation to medical appointments?: No Do you have trouble paying your heating and electricity bill?: No Do you have trouble taking care of your child, family member or friend?: No Do you have trouble with day-to-day activities such as bathing, preparing meals, shopping, managing finances, etc.?: No Are you currently unemployed and looking for a job?: No Are you interested in more education?: No Please select the resources that you would like help with: None Currently or been in a relationship where the following occur: No concerns reported THRIVE Score: 0 PAT-7 AMB Questionnaire PAT-7 Date PAT - 7 assessed: 08/31/24 Source: Developed by Drs. Cleve Yoder, Kati Young, Sander Beatty and colleagues, with an educational mellisa from [employer]. Physical exam (Primary Care) Vital Signs: Last Vital Signs Temp 98.2 F 11/30/24 14:55 Pulse 64 11/30/24 14:55 Resp 15 11/30/24 14:55 BP 110/72 11/30/24 14:55 Pulse Ox 96 11/30/24 14:55 Oxygen Delivery Method Room Air 11/30/24 14:55 BMI result Body Mass Index 30.9 Tobacco/Smoking Status: Tobacco use Status Tobacco use date assessed 11/30/24 11/30/24 14:59 Patient Tobacco Use Status Never used Tobacco 11/30/24 14:59 e-Cigarette/Vaping Use Never Used 11/30/24 14:59 Thrive Assessment: Date of Thrive Assessment Date Thrive assessed 08/27/24 11/30/24 14:59 Currently or been in a relationship where the following occur: No concerns reported Coding Level of Care Code Est Pt Level 4 (96633) Complex EM visit Add On G2211 Diagnoses Controlled type 2 diabetes mellitus with other specified complication, without long-term current use of insulin E11.69 Diabetes mellitus group home insulin use: without joint terminal attack controller use Diabetes mellitus complication status: with other specified complication Hypertension, essential I10 Lipid disorder E78.9 Environmental allergies Z91.09 Benign paroxysmal positional vertigo, unspecified laterality H81.10 Laterality: unspecified laterality Overactive bladder N32.81 Assessment & Plan Assessment & Plan (1) Diabetes type 2, controlled: Code(s): E11.9 - Type 2 diabetes mellitus without complications Category: Medical Qualifiers: Diabetes mellitus joint terminal attack controller insulin use: without group home use Diabetes mellitus complication status: with other specified complication Qualified Code(s): E11.69 - Type 2 diabetes mellitus with other specified complication (2) Hypertension, essential: Onset Date: Unknown Code(s): I10 - Essential (primary) hypertension Category: Medical (3) Lipid disorder: Code(s): E78.9 - Disorder of lipoprotein metabolism, unspecified Category: Medical (4) Environmental allergies: Code(s): Z91.09 - Other allergy status, other than to drugs and biological substances Category: Medical (5) Benign positional vertigo: Code(s): H81.10 - Benign paroxysmal vertigo, unspecified ear Category: Medical Qualifiers: Laterality: unspecified laterality Qualified Code(s): H81.10 - Benign paroxysmal vertigo, unspecified ear (6) Overactive bladder: Code(s): N32.81 - Overactive bladder Category: Medical Plan History - The patient is a 59-year-old female presenting with regular follow-up for chronic condition management. This is ongoing care - Type 2 Diabetes Mellitus: The patient's HbA1c was 6.8% in September, showing a gradual increase from 6.4% in August of the previous year and 6.6% in December. - Hypertension: The patient is currently on atenolol 50 mg for blood pressure management. - Hyperlipidemia: The patient is taking atorvastatin for cholesterol management. - Allergic Rhinitis: The patient is taking montelukast for allergy management. Problem List - Type 2 Diabetes Mellitus - Hypertension - Hyperlipidemia - Allergic Rhinitis Patient Instructions - Continue taking prescribed medications including atenolol, atorvastatin, glipizide, and montelukast. - Monitor blood sugar levels regularly, especially in the morning. - Schedule a follow-up appointment for blood tests as discussed. Orders: Orders Comprehensive [place]. Panel Fast 2 Months E11.9 - Type 2 diabetes mellitus without complications, E78.9 - Disorder of lipoprotein metabolism, unspecified, H81.10 - Benign paroxysmal vertigo, unspecified ear, I10 - Essential (primary) hypertension, N32.81 - Overactive bladder, Z91.09 - Other allergy status, other than to drugs and biological substances Hemoglobin A1c 2 Months E11.9 - Type 2 diabetes mellitus without complications, E78.9 - Disorder of lipoprotein metabolism, unspecified, H81.10 - Benign paroxysmal vertigo, unspecified ear, I10 - Essential (primary) hypertension, N32.81 - Overactive bladder, Z91.09 - Other allergy status, other than to drugs and biological substances Complete Blood Count Auto Diff 2 Months E11.9 - Type 2 diabetes mellitus without complications, E78.9 - Disorder of lipoprotein metabolism, unspecified, H81.10 - Benign paroxysmal vertigo, unspecified ear, I10 - Essential (primary) hypertension, N32.81 - Overactive bladder, Z91.09 - Other allergy status, other than to drugs and biological substances Lipid Panel 2 Months E11.9 - Type 2 diabetes mellitus without complications, E78.9 - Disorder of lipoprotein metabolism, unspecified, H81.10 - Benign paroxysmal vertigo, unspecified ear, I10 - Essential (primary) hypertension, N32.81 - Overactive bladder, Z91.09 - Other allergy status, other than to drugs and biological substances
== END 2024-11-30 15:18 | disposition home or self-care (01) ==
LOC: HO.HMCC 14:53
PROVIDERS: PCP Internal Medicine; Visit Provider Internal Medicine
DX: E11.69 Type 2 diabetes mellitus with other specified complication (principal); I10 Essential (primary) hypertension; E78.9 Disorder of lipoprotein metabolism, unspecified; Z91.09 Other allergy status, other than to drugs and biological substances; H81.10 Benign paroxysmal vertigo, unspecified ear; N32.81 Overactive bladder

== ENCOUNTER → 2024-11-30 14:52 | Outpatient (BNVA) | payer OTHER, SELFPAY | PROVIDERS: PCP Internal Medicine; Visit Provider Internal Medicine | DX: I10 Essential (primary) hypertension (principal); E11.69 Type 2 diabetes mellitus with other specified complication; E78.5 Hyperlipidemia, unspecified; J30.9 Allergic rhinitis, unspecified; E78.9 Disorder of lipoprotein metabolism, unspecified; H81.10 Benign paroxysmal vertigo, unspecified ear; N32.81 Overactive bladder; Z91.09 Other allergy status, other than to drugs and biological substances | CPT/HCPCS: 99212 ==

== ENCOUNTER 2025-01-26 08:26 | Outpatient (AMB) | payer OTHER, SELFPAY ==
--- NOTE | 2025-01-26 08:28 | MHC.OFFVIS ---
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/Internal Referral/45min Supervisor Show Operations Required: Yes Supervisor Show Operations Language: Hebrew Supervisor Show Operations Services: Supervisor Show Operations Offered & Declined (Daughter refusal form signed) Supervisor Show Operations Name: Vadim Adorno (Daughter) Information Interpreted: non-clinical & clinical Paint Tinter: Paint Tinter Present (Sigrid) Allergies fish Allergy (Intermediate, Verified 01/26/25 08:29) hives yogurt Allergy (Intermediate, Verified 01/26/25 08:29) hives amlodipine Adverse Reaction (Mild, Verified 01/26/25 08:29) ankle swelling hickery tree Allergy (Mild, Uncoded 11/30/24 14:57) Cough maple tree Allergy (Mild, Uncoded 11/30/24 14:57) Cough ragweed Allergy (Mild, Uncoded 11/30/24 14:57) Cough HPI Comments Details: Patient is a postmenopausal woman presenting for her 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 Spray Gunner concerns: none. Currently not sexually active, . Denies any vaginal dryness or irritation. STI testing offered; she declined. Attempting to eat a healthy diet with calcium and vitamin D and stays active with exercise. Last pap smear; 2020, negative. Last mammogram; 2023. Colonoscopy is UTD. Denies any family history of breast, ovarian or colon cancer. [facility] Medical History Allergic rhinitis History of vertigo Lipid disorder Overactive bladder Anxiety, generalized Hypertension, essential (Unknown) Surgical History Hx of colonoscopy Hx of appendectomy Family History Father No problems noted. Mother No problems noted. Social History (Updated 01/26/25 @ 09:00 by Anita Kraus CNM) Household Members Other:: Housing: Apartment Housing Other:: lives w/daughter Vadim Alcohol intake: current Alcohol intake frequency: does not drink Patient Tobacco Use Status: Never used Tobacco e-Cigarette/Vaping Use: Never Used Second Hand Smoke Exposure: No service: No Current occupational status: unemployed Cognitive needs: No Hearing needs: No Vision needs: No Female Reproductive History Menstrual Total pregnancies: 5 Full term: 5 Number of Living Children: 5 Date of last pap smear: 11/28/20 (neg pap and hpv) Date of Mammogram: 02/12/24 (Birad 1) Review of Systems Const All systems reviewed & are unremarkable except as noted in HPI and below Reports as per HPI Eyes Reports no additional complaints ENT Reports no additional complaints Card Reports no additional complaints Resp Reports no additional complaints GI Reports as per HPI and Reports no additional complaints Reports as per HPI Musc Reports no additional complaints Skin/Breast Reports as per HPI Neuro Reports no additional complaints Psych Reports no additional complaints Endo Reports no additional complaints Simon/Lymph Reports no additional complaints Aller/Immun Reports no additional complaints Physical Exam Vital Signs: Last Vital Signs BP 126/72 01/26/25 08:29 BMI result Body Mass Index 30.9 Const General: cooperative, healthy appearing, no acute distress, well developed and alert Orientation/consciousness: patient oriented x3 HEENT Head: Yes normal to inspection Eyes General: appearance normal, both eyes and all related structures Neck Neck: Yes normal visual inspection Thyroid: Thyroid normal Chest Chest palpation & inspection: normal inspection of the chest and other (no puckering, dimpling, peau de orange, retraction, discharge, masses) Breast/axilla inspection: normal inspection of the breasts Breast/axilla palpation: normal palpation of the breasts Resp Effort & Inspection: normal respiratory effort GI Inspection: Yes scar Palpation (GI): Soft to palpation Rectal Exam - Female: deferred General: Yes bladder normal to palpation External Female Exam: normal external appearance and normal appearance of the urethra Speculum Exam - Vagina: normal palpation and vagina atrophic Speculum Exam - Cervix: normal appearance of the cervix and normal palpation Bimanual exam- vagina & uterus: normal bimanual exam, normal palpation, uterine size normal, bladder normal to palpation, normal palpation and non-tender Bimanual Exam- Adnexa, other: no masses Skin General skin exam: no rashes or lesions noted Rashes: no rashes Neuro General: patient oriented x3 Cognition (Neuro): normal cognition Extrem General: Yes normal to inspection Psych Attitude: cooperative Thought process: Normal thought process present Assessment & Plan Assessment & Plan (1) Encounter for well woman exam with routine gynecological exam: Code(s): Z01.419 - Encounter for gynecological examination (general) (routine) without abnormal findings Category: Medical Plan Discussed: Current recommendations for pap smears per ASCCP guidelines. Plan Pap in 2025. Breast awareness, periodic self breast exams and yearly mammogram. Maintain a healthy lifestyle, well balanced diet including Calcium 1,200 mg and Vitamin D 600 IU daily, and routine exercise. Contact the office with any postmenopausal bleeding. Patient verbalizes understanding and agrees to the plan of care. She was given opportunity to ask questions and all questions were answered to the best of my ability. RTO in 1 year for annual social organization professor exam. This note is constructed using voice recognition software. While every effort has been made to ensure accuracy, financial advisor trainee errors may have been included. Coding Level of Care Code New Pt Prev Care 40-64y(83132) Diagnoses Encounter for well woman exam with routine gynecological exam Z01.419
[2025-01-26 08:29] VITALS: BP 126/72; BMI 30.9
== END 2025-01-26 09:09 | disposition home or self-care (01) ==
LOC: HO.HWS 08:26
PROVIDERS: Visit Provider Advanced Practice Midwife
DX: Z01.419 Encounter for gynecological examination (general) (routine) without abnormal findings (principal)
CPT/HCPCS: 99386; 99459

== ENCOUNTER → 2025-01-26 08:26 | Outpatient (BNVA) | payer OTHER, SELFPAY | PROVIDERS: Visit Provider Advanced Practice Midwife | DX: Z01.419 Encounter for gynecological examination (general) (routine) without abnormal findings (principal) | CPT/HCPCS: 99386 ==

== ENCOUNTER 2025-02-08 08:50 | Outpatient (AMB) | payer OTHER, SELFPAY ==
[2025-02-08 08:53] VITALS: BP 133/74; PULSE 61; BMI 30.6
--- NOTE | 2025-02-08 08:53 | A.OFFVIS_ITS ---
Vital Signs 3 02/08/25 08:53 Height 5 ft Weight 156 lb 8.451 oz BMI 30.6 BP 133/74 Blood Pressure Location Lt brachial Position Sitting Pulse 61 Intake Visit Reasons: Colonoscopy Screening Intake Note: New patient in office today for colonoscopy screening. CC: Patient reports heartburn sometimes. Denies having other GI symptoms today. Patient Care Technician Required: Yes Patient Care Technician Language: Tam[place] Patient Care Technician Name: daughter Accompanied by: Daughter Allergies fish Allergy (Intermediate, Verified 02/08/25 08:58) hives yogurt Allergy (Intermediate, Verified 02/08/25 08:58) hives amlodipine Adverse Reaction (Mild, Verified 02/08/25 08:58) ankle swelling hickery tree Allergy (Mild, Uncoded 11/30/24 14:57) Cough maple tree Allergy (Mild, Uncoded 11/30/24 14:57) Cough ragweed Allergy (Mild, Uncoded 11/30/24 14:57) Cough HPI HPI Colonoscopy Screening: Details: [place] is [place]. Her mother translates for. This is her first colonoscopy. She denies any bowell probems or upper GI problems. There are no prior problem with anesthesia or sedation. She denies any cardiac or respiratory problems. There is no known FHX of CRC or polyps. Assessments 1. Colon cancer screening - Z12.11 (Primary) Treatment 1. Colon cancer screening Start Dulcolax Tablet Delayed Release, 5 mg, 2 tablets, Orally, twice a day, 1 dose, 4 Tablet, Refills 0 Start Golytely Solution Reconstituted, 236 GM, as directed, Orally, as directed, 1 dose, 1 kit, Refills 0 IMAGING: Colonoscopy Notes: SHE WOULD PREFER A FEMALE ENDOSCOPIST. There is no known FHX of CRC or polyps.. Colonoscopy 07/2020 THE FINDINGS: Digital rectal exam revealed no specific lesion. Video colonoscope was introduced without difficulty and navigated into the rectosigmoid and sigmoid. There was mild redundancy in these areas. Scope was slowly advanced through sigmoid, descending, and transverse colon. There were areas of clustered fibrous material, which was too expensive to be able to suction through the scope. We did flush and suction certain areas. Scope advanced through transverse, ascending colon down into the cecum. Appendiceal orifice was seen. Ileocecal valve was well seen. No mucosal abnormalities were appreciated. Slow withdrawal of scope. Good rotational views. Most of the fibrous material had moved distally to below 60 cm, at 70 cm identified a 3-4 mm sessile polyp, it was removed excisionally with cold biopsy forceps. Scope continued to be withdrawn. On withdrawal of the area, the distal descending sigmoid was obscured by the residual fibrous material. Rectum had no specific lesions. Anorectal verge was well seen and normal. 1+ internal hemorrhoids were noted. PLAN: Current recommendations for repeat asymptomatic screening in this patient with polyp, and marginal prep on the left side would be 3 years, would consider doing Fit testing at years 1 and 2. * BIOPSY A. Colon, 70 cm, polypectomy: Fragments of tubular adenoma; negative for high grade dysplasia and carcinoma. LABS: TODAY'S VISIT [facility] Medical History (Updated 02/08/25 @ 09:02 by MANUELA Navarro) Upper respiratory infection Encounter for routine gynecological examination Encounter for well woman exam with routine gynecological exam STD exposure Cough Acute cough Low grade fever Encounter for general adult medical examination with abnormal findings Allergic rhinitis History of vertigo Lipid disorder Overactive bladder Anxiety, generalized Hypertension, essential (Unknown) Surgical History Hx of colonoscopy Hx of appendectomy Family History Father No problems noted. Mother No problems noted. Social History Household Members Other:: Housing: Apartment Housing Other:: lives w/daughter Mahira Alcohol intake: current Alcohol intake frequency: does not drink Patient Tobacco Use Status: Never used Tobacco e-Cigarette/Vaping Use: Never Used Second Hand Smoke Exposure: No service: No Current occupational status: unemployed Cognitive needs: No Hearing needs: No Vision needs: No Review of Systems Const Denies fatigue, Denies fever(s), Denies night sweats, Denies poor appetite and Denies weight loss ENT Reports Normal hearing present, Denies dental pain, Denies dysphagia, Denies hearing loss, Denies mouth pain, Denies odynophagia, Denies throat swelling, Denies tongue swelling and Reports other (Dentition adequate) Card Reports no additional complaints Resp Reports no additional complaints GI Details: Denies abdominal pain, Denies melena, Denies bloating, Denies hematochezia, Denies constipation, Denies GI cramping, Denies dysphagia, Denies excessive flatus, Denies early satiety, Denies heartburn, Denies diarrhea, Denies nausea, Denies odynophagia, Denies vomiting and Denies hematemesis Skin/Breast Denies pruritus, Denies lesions, Denies rash and Denies jaundice Neuro Reports Normal hearing present and Denies Abnormal speech present Endo Denies fatigue Aller/Immun Denies throat swelling and Denies tongue swelling Physical Exam Vital Signs: BMI result Body Mass Index 30.6 Const General: cooperative, no acute distress, well developed and well groomed Nutritional Appearance: average body habitus and well nourished Orientation/consciousness: oriented to person, oriented to place and oriented to time Limitations: language barrier ([place]) HEENT Head: Yes normocephalic and Yes atraumatic Eyes General: appearance normal, both eyes and all related structures Pupils: Equal, round and reactive pupils present Neck Neck: Yes normal visual inspection and Yes no lymphadenopathy Thyroid: Thyroid normal Resp Effort & Inspection: normal respiratory effort and able to speak in complete sentences Auscultation: clear to auscultation bilaterally Cardio Rate: regular rate Rhythm: regular rhythm Heart sounds: Normal, physiologic split S2 sound present Peripheral pulses: radial pulses present and posterior tibial pulses present GI Inspection: No distended, No Abdominal panniculus present and Yes scar Palpation (GI): Soft to palpation, nontender, no guarding, not rigid and No hepatosplenomegaly present Percussion: Yes normal to percussion Auscultation: normal bowel sounds Rectal Exam - Female: deferred Abdomen image: 2 1. surgical scar Skin General skin exam: no rashes or lesions noted, turgor normal, skin not dry, no jaundice, No spider nevi and no striae Rashes: no rashes Nails: normal Neuro General: oriented to person, oriented to place and oriented to time Cranial nerves: Yes Equal, round and reactive pupils present and Yes Normal hearing present Speech: No Abnormal speech present Extrem General: Yes normal to inspection, No clubbing, No cyanosis and No edema Psych Appearance: grossly normal and well kempt Mental Status: mental status grossly normal Speech and movement: Normal speech and movement present Affect: normal affect Attitude: cooperative Thought process: Normal thought process present and not confabulating Thought content: Normal thought content present Insight: Good insight present (Psych) Judgement: Good judgement present (Psych) Results Reviewed Results Reviewed: Laboratory Tests 09/10/24 10:26 WBC 7.2 Hgb 11.5 L Hct 36.4 L MCV 83.5 MCH 26.4 L Plt Count 320 Estimated GFR > 60 Hemoglobin A1c % 6.8 H Total Bilirubin 0.3 AST 27 ALT 24 Alkaline Phosphatase 80 Assessment & Plan Assessment & Plan (1) Pre-op examination: Code(s): Z01.818 - Encounter for other preprocedural examination Category: Medical (2) Tubular adenoma of colon: Comment: Sessile tubular adenoma in 2020 scope with insufficient prep repeat in 3 years Code(s): D12.6 - Benign neoplasm of colon, unspecified Category: Medical Plan SHE IS HERE TODAY WITH her daughter who translates from her [place] language of [place]. As of last time she requests a female endoscopist out of cultural respect. She denies any bowell probems or upper GI problems. There are no prior problem with anesthesia or sedation. She denies any cardiac or respiratory problems. There is no known FHX of CRC or polyps. But she had 1 tubular adenoma 3 years ago and we called her in early repeat due to insufficient clearance. There memory is uncertain about whether she could complete the prep she had KarolynLY last time so I will try to get them Suprep and I instructed her to go on a low- fiber diet for 3 days prior to the procedure to facilitate clearance. Orders: Orders 2 Colonoscopy - GI Use Only Today D12.6 - Benign neoplasm of colon, unspecified, Z01.818 - Encounter for other preprocedural examination Medications: New 2 sodium,potassium,mag sulfates 17.5-3.13-1.6 gram (Suprep Bowel Prep Kit) 480 mL orally; FOR COLONOSCOPY PREP 354 mL 0RF Coding Level of Care Code New Pt Level 3 (26331) Diagnoses Pre-op examination Z01.818 Tubular adenoma of colon D12.6
== END 2025-02-08 09:33 | disposition home or self-care (01) ==
LOC: HO.HGI 08:51
PROVIDERS: PCP Internal Medicine; Visit Provider Nurse Practitioner
DX: Z01.818 Encounter for other preprocedural examination (principal); Z12.11 Encounter for screening for malignant neoplasm of colon; Z86.0101 Personal history of adenomatous and serrated colon polyps
CPT/HCPCS: 99203

== ENCOUNTER → 2025-02-08 08:50 | Outpatient (BNVA) | payer OTHER, SELFPAY | PROVIDERS: PCP Internal Medicine; Visit Provider Nurse Practitioner | DX: Z01.818 Encounter for other preprocedural examination (principal); D12.6 Benign neoplasm of colon, unspecified | CPT/HCPCS: 99202 ==

== ENCOUNTER 2025-02-17 15:34 | Outpatient (REF) | payer OTHER, SELFPAY | END 2025-02-17 15:35 | disposition home or self-care (01) | LOC: HO.MAMMO 15:34 | PROVIDERS: PCP Internal Medicine; Visit Provider Internal Medicine | DX: Z12.31 Encounter for screening mammogram for malignant neoplasm of breast (principal) | CPT/HCPCS: 77063; 77067 ==

== ENCOUNTER → 2025-02-17 16:00 | Outpatient (BNV) | payer OTHER, SELFPAY | PROVIDERS: PCP Internal Medicine; Visit Provider Internal Medicine | DX: Z12.31 Encounter for screening mammogram for malignant neoplasm of breast (principal) | CPT/HCPCS: 77063; 77067 ==

== ENCOUNTER 2025-03-08 15:05 | Outpatient (AMB) | payer OTHER, SELFPAY ==
[2025-03-08 15:08] VITALS: BP 122/76; PULSE 64; O2SAT 99; BMI 31.2
--- NOTE | 2025-03-08 15:08 | A.OFFPC_ITS ---
Vital Signs 03/08/25 15:08 Height 5 ft Weight 160 lb BMI 31.2 BP 122/76 Blood Pressure Location Rt brachial Position Sitting Pulse 64 Pulse Source Pulse Oximeter Pulse Oximetry (%) 99 Intake Visit Reasons: 3 months f/up Allergies fish Allergy (Intermediate, Verified 03/08/25 15:11) hives yogurt Allergy (Intermediate, Verified 03/08/25 15:11) hives amlodipine Adverse Reaction (Mild, Verified 03/08/25 15:11) ankle swelling hickery tree Allergy (Mild, Uncoded 11/30/24 14:57) Cough maple tree Allergy (Mild, Uncoded 11/30/24 14:57) Cough ragweed Allergy (Mild, Uncoded 11/30/24 14:57) Cough Medication List - Last Reconciled 03/08/25 by Barb Julian MD alcohol swabs (Alcohol Prep Pads) pad topical aspirin 81 mg PO DAILY atenolol 50 mg PO DAILY 90 days atorvastatin 10 mg PO DAILY blood sugar diagnostic (FreeStyle Lite Strips) once a day fasting blood-glucose meter (FreeStyle Lite Meter kit) As directed cholecalciferol (vitamin D3) 50 mcg PO DAILY glipizide ER 2.5 mg PO DAILY 90 days lancets (FreeStyle Lancets) qd fasting loratadine 10 mg PO DAILY 90 days meclizine 25 mg PO DAILY PRN 90 days montelukast 10 mg PO DAILY 90 days multivitamin 1 tab PO DAILY tolterodine 1 mg PO BID Tobacco use date assessed: 11/30/24 Dental Screening Dental Screen Date: 11/30/24 HPI 3 months f/up HPI Details History The patient is a 59 year old female presenting with blood pressure management. Essential Hypertension: - Blood pressure measured at 122/76 mmHg , indicating well-controlled hypertension. - Atenolol is being taken for blood pres sure management. Dyslipidemia: - Patient is taking atorvastatin 10 mg f or lipid disorder. Diabetes Mellitus Type 2: - Diabetes is being controlled with glip izide 2.5 mg daily. - Hemoglobin A1c was recorded at 6.8 in September. It is 6.6 today Anemia: - Slight anemia noted with hemoglobin le laura at 11.5 recorded in September. Allergic Rhinitis: - Allergies stable Vertigo: - Patient takes meclizine 25 mg as neede d for vertigo. Urge Incontinence: - Managed well with tolterodine 1 mg BID . Problem List - Essential Hypertension - Dyslipidemia - Diabetes Mellitus Type 2 - Anemia - Allergic Rhinitis - Vertigo - Anxiety - Urge Incontinence Patient Instructions - Schedule and complete the recommended blood tests before your next appointment. - Continue current medications as prescr ibed. - Get flu and pneumonia vaccinations. Follow-up three-month Review of Systems General: No fever no chills neurological: No headaches no dizziness ear nose throat: No sore throat no hearing difficulty no ear pain cardiovascular: No syncope, no chest pain, no palpitations gastrointestinal: No nausea vomiting or diarrhea endocrine: No polyuria polydipsia no heat intolerance genitourinary: No dysuria skin: No new complaints Physical Exam general: No acute distress HEENT: No acute findings neck: Supple respiratory system: Lungs sound clear, able to talk in full sentences, no audible wheeze, no stridor cardiovascular: S1-S2 RRR gastrointestinal: No pain, no nausea or stomach pain extremities: No swelling in feet [employer]: Alert awake oriented x3 motor sensory intact skin: Normal turgor, contact dermatitis noted back of both hand due to wearing gloves [facility] Medical History Upper respiratory infection Encounter for routine gynecological examination Encounter for well woman exam with routine gynecological exam STD exposure Cough Acute cough Low grade fever Encounter for general adult medical examination with abnormal findings Allergic rhinitis History of vertigo Lipid disorder Overactive bladder Anxiety, generalized Hypertension, essential (Unknown) Surgical History Hx of colonoscopy Hx of appendectomy Family History Father No problems noted. Mother No problems noted. Social History Household Members Other:: Housing: Apartment Housing Other:: lives w/daughter Vadim Alcohol intake: current Alcohol intake frequency: does not drink Patient Tobacco Use Status: Never used Tobacco e-Cigarette/Vaping Use: Never Used Second Hand Smoke Exposure: No service: No Current occupational status: unemployed Cognitive needs: No Hearing needs: No Vision needs: No Questionnaire Thrive Questionnaire Date Thrive assessed: 08/27/24 I am a: Patient What is your living situation today?: I have a steady place to live Within the past 12 months, did the food you bought not last and you didn't have the money to get more?: Never true Within the past 12 months, did you worry whether your food would run out before you got money to buy more?: Never true Do you have trouble paying for medicines?: No Do you have trouble getting transportation to medical appointments?: No Do you have trouble paying your heating and electricity bill?: No Do you have trouble taking care of your child, family member or friend?: No Do you have trouble with day-to-day activities such as bathing, preparing meals, shopping, managing finances, etc.?: No Are you currently unemployed and looking for a job?: No Are you interested in more education?: No Please select the resources that you would like help with: None Currently or been in a relationship where the following occur: No concerns reported THRIVE Score: 0 AUDIT C Alcohol Use Questionnaire (AUDIT-C) 3. How often do you have six or more drinks on one occasion?: Never Total Score: 0 PAT-7 AMB Questionnaire PAT-7 Date PAT - 7 assessed: 08/31/24 Source: Developed by Drs. Cleve Yoder, Kati Young, Sander Beatty and colleagues, with an educational mellisa from [employer]. Physical exam (Primary Care) Vital Signs: Last Vital Signs Pulse 64 03/08/25 15:08 BP 122/76 03/08/25 15:08 Pulse Ox 99 03/08/25 15:08 BMI result Body Mass Index 31.2 Tobacco/Smoking Status: Tobacco use Status Tobacco use date assessed 11/30/24 03/08/25 15:09 Patient Tobacco Use Status Never used Tobacco 03/08/25 15:09 e-Cigarette/Vaping Use Never Used 03/08/25 15:09 Thrive Assessment: Date of Thrive Assessment Date Thrive assessed 08/27/24 03/08/25 15:09 Currently or been in a relationship where the following occur: No concerns reported Office Procedures Flu Questionnaire Does the patient have a severe egg allergy?: No Does the patient have severe life threatening allergies?: No Does the patient have a fever or illness today?: No Has the patient ever had Guillain-[place] Syndrome?: No Has the patient ever had any past reaction to a flu shot?: No Results AMB Hemoglobin A1c AMB Hemoglobin A1c 6.6 % Last Edit by Tom Kaufman CMA on 03/08/25 15: 42 Immunizations Fluarix [id number] (PF) 45 mcg (15 mcg x 3)/0.5 mL IM syringe Performing Provider: Barb Julian MD Performing Location: [facility] Administered by: Tom Kaufman CMA on 03/08/25 15:41 Dose Route Admin Location Dispensed Lot Number Expiration Date NDC [employer] 0.5 mL IM Right Deltoid 0.5 mL [id number] 12/05/25 [id number] [employer] VIS Given Date VIS Provided VIS Publication Date 03/08/25 Single Vaccine 24 Eligibility Eligibility Date Funding Source Not VFC Eligible 03/08/25 Private pneumoc 20-zuly conj-dip cr(PF) 0.5 mL IM syringe Performing Provider: Barb Julian MD Performing Location: [facility] Administered by: Tom Kaufman CMA on 03/08/25 15:41 Dose Route Admin Location Dispensed Lot Number Expiration Date NDC [employer] 0.5 mL IM Right Deltoid 0.5 mL [id number] 07/28/25 [employer] 2 Total Dispensed Waste 0.5 mL 0 % VIS Given Date VIS Provided VIS Publication Date 03/08/25 Single Vaccine 24 Eligibility Eligibility Date Funding Source Not VFC Eligible 03/08/25 Private Results Reviewed Results Reviewed: Laboratory Last Values Hgb A1c (Clinic) 6.6 % (4.0-6.0) H 03/08/25 15:39 Coding Level of Care Code Est Pt Level 4 (72209) Complex EM visit Add On G2211 Diagnoses Diabetes type 2, controlled E11.9 Hypertension, essential I10 Lipid disorder E78.9 Environmental allergies Z91.09 Benign paroxysmal positional vertigo, unspecified laterality H81.10 Laterality: unspecified laterality Overactive bladder N32.81 Contact dermatitis, unspecified contact dermatitis type, unspecified trigger L25.9 Contact dermatitis trigger: unspecified trigger Contact dermatitis type: unspecified Assessment & Plan Assessment & Plan (1) Diabetes type 2, controlled: Code(s): E11.9 - Type 2 diabetes mellitus without complications Category: Medical (2) Hypertension, essential: Onset Date: Unknown Code(s): I10 - Essential (primary) hypertension Category: Medical (3) Lipid disorder: Code(s): E78.9 - Disorder of lipoprotein metabolism, unspecified Category: Medical (4) Environmental allergies: Code(s): Z91.09 - Other allergy status, other than to drugs and biological substances Category: Medical (5) Benign positional vertigo: Code(s): H81.10 - Benign paroxysmal vertigo, unspecified ear Category: Medical Qualifiers: Laterality: unspecified laterality Qualified Code(s): H81.10 - Benign paroxysmal vertigo, unspecified ear (6) Overactive bladder: Code(s): N32.81 - Overactive bladder Category: Medical (7) Contact dermatitis: Code(s): L25.9 - Unspecified contact dermatitis, unspecified cause Category: Medical Qualifiers: Contact dermatitis trigger: unspecified trigger Contact dermatitis type: unspecified Qualified Code(s): L25.9 - Unspecified contact dermatitis, unspecified cause Plan History The patient is a 59 year old female presenting with blood pressure management. Essential Hypertension: - Blood pressure measured at 122/76 mmHg, indicating well-controlled hypertension. - Atenolol is being taken for blood pressure management. Dyslipidemia: - Patient is taking atorvastatin 10 mg for lipid disorder. Diabetes Mellitus Type 2: - Diabetes is being controlled with glipizide 2.5 mg daily. - Hemoglobin A1c was recorded at 6.8 in September. It is 6.6 today Anemia: - Slight anemia noted with hemoglobin level at 11.5 recorded in September. Allergic Rhinitis: - Allergies stable Vertigo: - Patient takes meclizine 25 mg as needed for vertigo. Urge Incontinence: - Managed well with tolterodine 1 mg BID. Problem List - Essential Hypertension - Dyslipidemia - Diabetes Mellitus Type 2 - Anemia - Allergic Rhinitis - Vertigo - Anxiety - Urge Incontinence Patient Instructions - Schedule and complete the recommended blood tests before your next appointment. - Continue current medications as prescribed. - Get flu and pneumonia vaccinations. Follow-up three-month Orders: Orders Influenza [id number] Immunization Today Z23 - Encounter for immunization Pneumococcal 20 Immunization Today Z23 - Encounter for immunization AMB Hemoglobin A1c Today Z13.9 - Encounter for screening, unspecified Medications: Refilled tolterodine 1 mg PO BID 180 tabs 3RF for bladder pain
== END 2025-03-08 15:37 | disposition home or self-care (01) ==
LOC: HO.HMCC 15:06
PROVIDERS: PCP Internal Medicine; Visit Provider Internal Medicine
DX: E11.9 Type 2 diabetes mellitus without complications (principal); I10 Essential (primary) hypertension; E78.9 Disorder of lipoprotein metabolism, unspecified; Z91.09 Other allergy status, other than to drugs and biological substances; H81.10 Benign paroxysmal vertigo, unspecified ear; N32.81 Overactive bladder; L25.9 Unspecified contact dermatitis, unspecified cause; Z23 Encounter for immunization; Z13.9 Encounter for screening, unspecified

== ENCOUNTER → 2025-03-08 15:05 | Outpatient (BNVA) | payer OTHER, SELFPAY | PROVIDERS: PCP Internal Medicine; Visit Provider Internal Medicine | DX: I10 Essential (primary) hypertension (principal); E78.5 Hyperlipidemia, unspecified; D64.9 Anemia, unspecified; J30.9 Allergic rhinitis, unspecified; N39.41 Urge incontinence; H81.10 Benign paroxysmal vertigo, unspecified ear; N32.81 Overactive bladder; L25.9 Unspecified contact dermatitis, unspecified cause; Z91.09 Other allergy status, other than to drugs and biological substances; Z23 Encounter for immunization | CPT/HCPCS: 83036; 90471; 90472; 90656; 90677; 99212 ==

== ENCOUNTER 2025-05-24 08:10 | Outpatient (REF) | payer OTHER, SELFPAY ==
[2025-05-24 10:43] LABS: MANUAL DIFF FLAG NO
[2025-05-24 10:55] LABS: Hematocrit 38.6 % (37.0-47.0); Hemoglobin 11.9 g/dl (12.0-16.0); Imm Gran Abs Auto 0.02 X10*3/uL (0.00-0.03); Imm Gran Pct Auto 0.3 % (0.0-0.4); Lymphocytes Absolute Auto 2.6 X10*3/uL (1.2-4.9); Mean Corpuscular HGB Conc 30.8 g/dl (31.0-35.0); Mean Corpuscular Hemoglobin 25.9 pg (27.0-33.0); Mean Corpuscular Volume 84.1 fL (80.0-98.0); NRBC Abs Auto 0.000 X10*3/uL (0.0-0.012); NRBC Pct Auto 0.0 /100WBC (0.0-0.2); Platelet Count 329 X10*3/uL (160-400); Red Blood Count 4.59 X10*6/uL (4.20-5.50); White Blood Count 7.9 X10*3/uL (4.8-10.8)
[2025-05-24 11:28] LABS: Alanine Aminotransferase 24 U/L (0-31); Albumin Level 4.3 g/dL (3.5-5.0); Alkaline Phosphatase 77 U/L (39-117); Anion Gap 12 (12-20); Aspartate Amino Transferase 30 U/L (5-31); Blood Urea Nitrogen 17 mg/dL (9-16); Calcium 9.7 mg/dL (8.4-10.2); Carbon Dioxide 27 mmol/L (22-29); Chloride 108 mmol/L (96-108); Cholesterol 168 mg/dL (<200); Estimated Glomerular Filt Rate > 60; HDL Cholesterol 61 mg/dL (>40); Potassium 4.7 mmol/L (3.3-5.1); Sodium 142 mmol/L (135-145); Total Protein 7.3 g/dL (6.5-8.0); Triglycerides 90 mg/dL (<150)
== END 2025-05-24 08:11 ==
LOC: HO.HMGCLDS 08:10
PROVIDERS: PCP Internal Medicine; Visit Provider Internal Medicine
DX: I10 Essential (primary) hypertension (principal); E78.9 Disorder of lipoprotein metabolism, unspecified; E11.9 Type 2 diabetes mellitus without complications; Z91.09 Other allergy status, other than to drugs and biological substances; H81.10 Benign paroxysmal vertigo, unspecified ear; N32.81 Overactive bladder
CPT/HCPCS: 36415; 80053; 80061; 83036; 85025